=== PATIENT | male | born 1980 | race Caucasian/White ===

== ENCOUNTER 2019-09-21 12:46 | Inpatient (IN) | payer OTHER ==
--- NOTE | 2019-09-21 12:57 | PDOC ---
Rapid Medical Evaluation Time Seen by Provider: 09/21/19 12:51 Medical Evaluation: Allergies Allergy/AdvReac Type Severity Reaction Status Date / Time No Known Allergies Allergy Verified 02/23/15 20:36 09/21/19 12:52 I have performed a brief in-person evaluation of this patient. The patient presents with a chief complaint of:sent from Dr George for admission / infection right hip/ hepC/ opiod addict.- states has " fungal infection in blood culture" at Dr George last week. Pertinent physical exam findings: pale/ I have ordered the following: labs - mult instructions and orders to note from Dr George The patient will proceed to the ED for further evaluation.
[2019-09-21 13:04] VITALS: BMI 23.3
[2019-09-21] MEDS ORDERED: SODIUM CHLORIDE 1,000 ML IV STA (13:13)
--- NOTE | 2019-09-21 13:37 | PDOC ---
History of Present Illness - General Chief Complaint: Pain Stated Complaint: SENT FROM PCP Time Seen by Provider: 09/21/19 12:51 History Source: Patient - History of Present Illness Timing/Duration: other Past History - Past Medical History Allergies/Adverse Reactions: Allergies Allergy/AdvReac Type Severity Reaction Status Date / Time No Known Allergies Allergy Verified 09/21/19 13:04 Home Medications: Ambulatory Orders Albuterol Sulfate Inhaler - [Ventolin HFA Inhaler -] 2 inh IH Q6H #1 inh Ibuprofen [Motrin] 800 mg PO TID #20 tablet 02/24/15 predniSONE [Deltasone -] 40 mg PO DAILY #14 tablet 02/24/15 Asthma: Yes - Immunization History Immunization Up to Date: Yes - Psycho Social/Smoking Cessation Hx Smoking History: Current every day smoker Have you smoked in the past 12 months: Yes Number of Cigarettes Smoked Daily: 20 Information on smoking cessation initiated: No 'Breaking Loose' booklet given: 02/23/15 Hx Alcohol Use: No Drug/Substance Use Hx: No Substance Use Type: None Review of Systems - Review of Systems Constitutional: No: Chills, Fever Respiratory: No: Cough, Shortness of Breath, Hemoptysis Cardiac (ROS): No: Chest Pain, Lightheadedness, Palpitations Musculoskeletal: Yes: Joint Pain. No: Joint Swelling *Physical Exam - Vital Signs Last Vital Signs Temp Pulse Resp BP Pulse Ox 98 F 75 18 98/44 L 99 09/21/19 12:56 09/21/19 12:56 09/21/19 12:56 09/21/19 12:56 09/21/19 12:56 - Physical Exam Comments: 09/21/19 13:37 josé miguel chronically ill General Appearance: Yes: Appropriately Dressed HEENT: positive: Normal Voice Neck: positive: Supple Respiratory/Chest: positive: Lungs Clear, Normal Breath Sounds. negative: Respiratory Distress Cardiovascular: positive: Regular Rate, S1, S2. negative: Murmur Gastrointestinal/Abdominal: positive: Soft. negative: Tender Extremity: positive: Normal Inspection, Normal Range of Motion. negative: Tender, Swelling Integumentary: positive: Dry, Warm Neurologic: positive: Fully Oriented, Alert, Normal Mood/Affect ED Treatment Course - RADIOLOGY Radiology Studies Ordered: Category Date Time Status LOWER EXTREMITY MRI W&WO-LEFT [MRI] Stat MRI 09/21/19 13:16 Ordered CHEST X-RAY PORTABLE* [RAD] Stat Radiology 09/21/19 13:17 Ordered Medical Decision Making - Medical Decision Making 09/21/19 13:24 39 yo M, h/o asthma, sciatica, IVDA, last used lst night,non-complaint w/ suboxone ("gives me withdrawal"), recently dx w/ HCV, sent in by PMD to r/o R hip osteomyelitis. Patient states he has chronic right hip pain that has been getting worse. Does report sciatica on the R but states this is different from his sciatica. No neuro symptoms. No trauma. States he saw Dr. George last week for same and was also c/o some swelling of both of his lower extremities and had blood work done. States he received a call from MD today that blood culture is growing out yeast and sent to ED. Patient denies any cough, shortness of breath, chest pain, palpitations, body aches, joint pain, abd pain , night sweats, fever or chills. States he currently feels like he is in withdrawal. Labs drawn 09/17 remarkable for ESR of 19, CRP 27, mildly elevated LFTs. WBC 11. Per notes from Dr. George, wants 2 set of blood cultures, MRI right hip with and without contrast and echo. Also wants ID consult. see exam R/o OM R hip Yeast on recent bld cx w/ elevated inflammatory markers Current IVDA No fever, CP, SOB and no murmur on exam to suspect endocarditis at this time José Miguel chronically ill and pain w/ BP 98/44 -labs -ekg -MRI hip -Echo per referring PMD -ID c/s -admit 09/21/19 13:58 Admitting team at bedside, states ID already aware of pt. Wants dose of IV Vanco here. Team to discuss possible IV antifungal with ID. Patient currently admitted to Dr. George Discharge - Discharge Information Problems reviewed: Yes Clinical Impression/Diagnosis: Blood culture positive for Aziza species Hip pain Qualifiers: Laterality: right Qualified Code(s): M25.551 - Pain in right hip Condition: Fair - Admission Yes - Follow up/Referral - Patient Discharge Instructions - Post Discharge Activity
[2019-09-21] MEDS ORDERED: ACETAMINOPHEN 1000 MG/100 ML VIAL (NON FORMULARY) IVPB ONE (13:56)
[2019-09-21] MEDS ORDERED: VANCOMYCIN 1,000 MG in DEXTROSE 5%-WATER - 250 ML IVPB ONE (13:57)
--- NOTE | 2019-09-21 14:14 | CON.CARD ---
Consult Consult Specialty:: Cardiology Referred by:: Dr. Canales Reason for Consultation:: Possible endocarditis - History of Present Illness Chief Complaint: Hip pain , + blood cultures History of Present Illness: 39M, active IVDA (heroin) w/ several weeks right hip pain presents to ER with + blood cultures (yeast species), right hip pain for further evaluation. Patient states his hip has been hurting for about 2 weeks. Had blood cultures Friday in Dr. George office and was called to come to ER today for + results. He has some nigh sweats. He injects daily with his own needles. PMH: Mild asthma Denies CP, Neuro sx, palps, SOB. 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: Alzheimer's, CVA, Dementia, Migraine, Multiple Sclerosis, Peripheral Neuropathy, Parkinson's, Seizure, Syncope, TIA, Vertigo, Other Cardio/Vascular: No: AFIB, Aneurysm, Aortic Insufficiency, Aortic Stenosis, CAD , CHF, Deep Vein Thrombosis, HTN, Hyperlipdemia, [place], Mitral Insufficiency, Mitral Stenosis, Murmur, Pulmonary Hypertension, Other Pulmonary: Yes: Asthma Gastrointestinal: No: Ascites, Cancer, Constipation, Crohn's Disease, Diverticulitis, Diverticulosis, Esophageal Varices, Gastritis, GERD, GI Bleed, Hemorrhoids, Hiatal Hernia, Inflamatory Bowel Disease, Irritable Bowel Disease, Pancreatitis, Peptic Ulcer Disease, Ulcerative Colitis, Other Hepatobiliary: No: Cirrhosis, Cholelithiasis, Cholecystitis, Choledocholithiasis , Hepatitis A, Hepatitis B, Hepatitis C, Other Renal/: No: Renal Failure, Renal Inusuff, BPH, Cancer, Hematuria, Hemodialysis , Neurogenic Bladder, Renal Calculi, UTI, Other Heme/Onc: No: Anemia, B12 Deficiency, Bleeding Disorder, Cancer, Current Chemotherapy, Current Radiation Therapy, Hemochromatosis, Hypercoaguable State, Myeloproliferative Synd, Sickle Cell Disease, Sickle Cell Trait, Thrombocytopenia, Other Infectious Disease: No: AIDS, C-Diff, Herpes Zoster, HIV, MRSA, STD's, Tuberculosis, VREF, Other Psych: No: Addictions, Anxiety, Bipolar, Depression, Panic, Psychosis, Schizophrenia, Other Musculoskeletal: No: Bursitis, Chronic low back pain, Hemiparesis, Hemiplegia, Osteoarthritis, Paraplegia, Other Rheumatology: No: Fibromyalgia, Gout, Lupus, Rheumatoid Arthritis, Sarcoidosis, Vasculitis, Other ENT: No: Allergic Rhinitis, Sinusitis, Other Endocrine: No: Beadle's Disease, Ruby's Disease, Diabetes Insipidus, Diabetes Mellitus, Hyperparathyroidism, Hyperthyroidism, Hypothyroidism, Osteopenia, SIADH, Other Dermatology: No: Basal Cell, Cellulitis, Eczema, Melanoma, Psoriasis, Squamous Cell, Other - Past Surgical History Past Surgical History: No: None, AAA Repair, AICD, Amputation, Appendectomy, Arthrosocopy, AV Fistula/Graft, Bariatric Surgery, Breast Biopsy, Bypass, CABG, Carotid Endarterectomy, Cataract Removal, Cholecystectomy, Colectomy, Colonoscopy, Colostomy, Craniotomy, , Cystectomy, Hernia Repair, Hysterectomy, Ileal Conduit, Ileosotomy, Joint Replacement, Kidney Transplant, Laminectomy, Liver Transplant, Mastectomy, Nephrectomy, Oopherectomy, Orchiectomy, Permanent Pacemaker, Prostatectomy, Splenectomy, Stent, Thoracotomy , TURP, Tonsillectomy, Tubal Ligation, Upper Endoscopy, Valve Replacement, Vasectomy, Vein Stripping/Ligation - Alcohol/Substance Use Hx Alcohol Use: No History of Substance Use: reports: Heroin - Smoking History Smoking history: Current every day smoker Have you smoked in the past 12 months: Yes Aproximately how many cigarettes per day: 20 - Social History Occupation: unemployed History of Recent Travel: No Home Medications - Allergies Allergies/Adverse Reactions: Allergies Allergy/AdvReac Type Severity Reaction Status Date / Time No Known Allergies Allergy Verified 09/21/19 13:04 - Home Medications Home Medications: Ambulatory Orders Albuterol Sulfate Inhaler - [Ventolin HFA Inhaler -] 2 inh IH Q6H #1 inh Ibuprofen [Motrin] 800 mg PO TID #20 tablet 02/24/15 predniSONE [Deltasone -] 40 mg PO DAILY #14 tablet 02/24/15 Family Medical History Family History: Unremarkable Review of Systems Findings/Remarks: see HPI - Review of Systems Constitutional: reports: Chills, Night Sweats Eyes: denies: No Symptoms, Blind Spots, Blurred Vision, Double Vision, Eye Pain , Floaters, Photophobia, Recent Change in Vision, Other HENT: denies: No Symptoms, Difficult Swallowing, Ear Discharge, Ear Pain, Epistaxis, Gingival Bleeding, Hearing Loss, Mouth Swelling, Nasal Congestion, Ocular Prosthesis, Throat Pain, Toothache, Ringing in Ears, Other Neck: denies: No Symptoms, Decreased ROM, Lumps, Pain on Movement, Stiffness, Swollen Glands, Tenderness, Other Cardiovascular: denies: No Symptoms, Chest Pain, Edema, Palpitations, Shortness of Breath, Other Respiratory: denies: No Symptoms, Cough, Exercise Intolerance, Hemoptysis, Orthopnea, PND, Snoring, SOB, SOB on Exertion, Wheezing, Other Gastrointestinal: denies: No Symptoms, Abdominal Pain, Bloating, Constipation, Diarrhea, Dysphagia, Indigestion, Melena, Nausea, Rectal Bleeding, Vomiting, Vomiting Blood, Other Genitourinary: denies: No Symptoms, Burning, Discharge, Dysuria, Flank Pain, Frequency, Hematuria, Incontinence, Lesions, Menses, Pain, Testicular Mass, Testicular Pain, Testicular Swelling, Urgency, Vaginal Bleeding, Other Breasts: denies: No Symptoms Reported, See HPI, Breast Implants, Discharge from Nipple, Lumps, Pain, Skin Changes, Other Musculoskeletal: reports: Joint Pain Integumentary: denies: No Symptoms, Blister, Bruising, Change in Color, Eczema, Erythema, Incision, Lesions, Lump, Pallor, Pruritis, Rash, Wound, Other Neurological: denies: No Symptoms, Change in LOC, Change in Speech, Confusion, Dizziness, Headache, Incoordination, Numbness, Parasthesia, Pre-Existing Deficit , Seizure, Syncope, Tremors, Unsteady Gait, Weakness, Other Endocrine: denies: No Symptoms, Excessive Sweating, Flushing, Increased Hunger, Increased Thirst, Intolerance to Cold, Intolerance to Heat, Unexplained Weight Gain, Unexplained Weight Loss, Other Hematology/Lymphatic: denies: No Symptoms, Easily Bruised, Excessive Bleeding, Swollen Glands, Other Psychiatric: denies: No Symptoms, Altered Sleep Pattern, Anxiety, Depression, Hallucinations, Panic, Paranoia, Suicidal, Other - Risk Factors Known Risk Factors: Yes: Smoking Vital Signs: Vital Signs Temperature 98 F 09/21/19 12:56 Pulse Rate 75 09/21/19 12:56 Respiratory Rate 18 09/21/19 12:56 Blood Pressure 98/44 L 09/21/19 12:56 O2 Sat by Pulse Oximetry (%) 99 09/21/19 12:56 Constitutional: Yes: No Distress, Calm Eyes: Yes: Conjunctiva Clear, EOM Intact HENT: Yes: Atraumatic, Normocephalic Neck: Yes: Trachea Midline Respiratory: Yes: CTA Bilaterally Gastrointestinal: Yes: Soft (NT) Cardiovascular: Yes: Regular Rate and Rhythm JVD: No Carotid Bruit: No PMI: Non-Displaced Heart Sounds: Yes: S1, S2 (rrr, NO MURMURS) Musculoskeletal: Yes: Other (right hip pain) Extremities: Yes: Other (track [place] on arms/hands) Edema: No Neurological: Yes: Alert, Oriented ...Motor Strength: WNL - Other Data Labs, Other Data: pending NSR at 65 bpm, normal VA interval Echo: Pending Imaging - Results EKG: Image Reviewed Assessment/Plan IMP: Active IVDA (heroin) Positive blood cultures (by report yeast) Right hip pain, r/o osteo Rule out endocarditis. REC: 1. Serial blood cultures; imaging of right hip as per PMD 2. Echo 3. ID consult and abx as per ID 4. Telemetry, daily ECGs 5. Watch / treat for opiate withdrawal as per PMD 6. Low threshold to transfer to tertiary care center if clinical picture becomes more clearly c/w endocarditis.
[2019-09-21 15:09] LABS: BASO % 0.5 % (0-2.0); EOS % 2.2 % (0-4.5); HEMATOCRIT 38.5 % (35.4-49); HEMOGLOBIN 12.9 GM/dL (11.7-16.9); MCH 31.3 pg (25.7-33.7); MCHC 33.5 g/dl (32.0-35.9); MEAN CELL VOLUME 93.3 fl (80-96); MEAN PLT VOLUME 7.9 fl (7.5-11.1); NEUT % 62.3 % (42.8-82.8); PLATELET COUNT 372 K/MM3 (134-434); RBC 4.12 M/mm3 (4.00-5.60); RDW 15.1 % (11.9-15.9); WHITE BLOOD COUNT 8.4 K/mm3 (4.0-10.0)
[2019-09-21 15:15] LABS: EPI CELLS 9.7 /HPF (0-5/HPF); HYALINE CASTS 108 /lpf (0-8); URINE APPEARANCE CLOUDY; URINE BACTERIA 1.2 /hpf (NEGATIVE); URINE BILIRUBIN 2+ (NEGATIVE); URINE COLOR DK YELLOW; URINE GLUCOSE (UA) NEGATIVE (NEGATIVE); URINE KETONE TRACE (NEGATIVE); URINE LEUK ESTERASE TRACE (NEGATIVE); URINE NITRITE POSITIVE (NEGATIVE); URINE PROTEIN 2+ (NEGATIVE); URINE RBC 4 /hpf (0-4); URINE WBC 12 /hpf (0-5)
--- NOTE | 2019-09-21 15:40 | HP ---
Admitting History and Physical - Primary Care Physician PCP: Jem Alegria - Admission Chief Complaint: positive blood culture History of Present Illness: 39 yrs old male sent from Dr Alegria office for positive blood cultures -- to r/ o endocarditis He is IVDA - Heroin for 2 years now-- was on suboxone - but could not tolerate it as it was giving him withdrawals. chronic Hep C, asthma, cigarette smoker- 1 ppd He had not seen Dr Alegria in last 2 months and had gone to his office about 4 days ago , feeling weak , difficulty walking due to pain in right hip for last 1 month - using a cane now.denies fever and chills.Has leg swelling, SOB . Denies chest pain and palpitations. PMD dennis labs and cultures - today called pt in as one set came back positive for yeast and was advised to go to ER. 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, CVA, Dementia, Migraine, Multiple Sclerosis, Peripheral Neuropathy, Parkinson's, Seizure, Syncope, TIA, Vertigo, Other Cardiovascular: No: AFIB, Aneurysm, Aortic Insufficiency, Aortic Stenosis, CAD, CHF, Deep Vein Thrombosis, HTN, Hyperlipdemia, [place], Mitral Insufficiency, Mitral Stenosis, Murmur, Pulmonary Hypertension, Other Pulmonary: Yes: Asthma Gastrointestinal: No: Ascites, Cancer, Constipation, Crohn's Disease, Diverticulitis, Diverticulosis, Esophageal Varices, Gastritis, GERD, GI Bleed, Hemorrhoids, Hiatal Hernia, Inflamatory Bowel Disease, Irritable Bowel Disease, Pancreatitis, Peptic Ulcer Disease, Ulcerative Colitis, Other Hepatobiliary: Yes: Hepatitis C. No: Cirrhosis, Cholelithiasis, Cholecystitis, Choledocholithiasis, Hepatitis A, Hepatitis B, Other Renal/: No: Renal Failure, Renal Inusuff, BPH, Cancer, Hematuria, Hemodialysis , Neurogenic Bladder, Renal Calculi, UTI, Other Heme/Onc: No: Anemia, B12 Deficiency, Bleeding Disorder, Cancer, Current Chemotherapy, Current Radiation Therapy, Hemochromatosis, Hypercoaguable State, Myeloproliferative Synd, Sickle Cell Disease, Sickle Cell Trait, Thrombocytopenia, Other Infectious Disease: No: AIDS, C-Diff, Herpes Zoster, HIV, MRSA, STD's, Tuberculosis, VREF, Other Psych: No: Addictions, Anxiety, Bipolar, Depression, Panic, Psychosis, Schizophrenia, Other Musculoskeletal: No: Bursitis, Chronic low back pain, Hemiparesis, Hemiplegia, Osteoarthritis, Paraplegia, Other Rheumatology: No: Fibromyalgia, Gout, Lupus, Rheumatoid Arthritis, Sarcoidosis, Vasculitis, Other ENT: No: Allergic Rhinitis, Sinusitis, Other Endocrine: No: Maljamar's Disease, [place]'s Disease, Diabetes Insipidus, Diabetes Mellitus, Hyperparathyroidism, Hyperthyroidism, Hypothyroidism, Osteopenia, SIADH, Other Dermatology: No: Basal Cell, Cellulitis, Eczema, Melanoma, Psoriasis, Squamous Cell, Other Additional Past Medical History: chronic smoker, occasional alcohol, current IVDA - heroin - Past Surgical History Past Surgical History: No: None, AAA Repair, AICD, Amputation, Appendectomy, Arthrosocopy, AV Fistula/Graft, Bariatric Surgery, Breast Biopsy, Bypass, CABG, Carotid Endarterectomy, Cataract Removal, Cholecystectomy, Colectomy, Colonoscopy, Colostomy, Craniotomy, , Cystectomy, Hernia Repair, Hysterectomy, Ileal Conduit, Ileosotomy, Joint Replacement, Kidney Transplant, Laminectomy, Liver Transplant, Mastectomy, Nephrectomy, Oopherectomy, Orchiectomy, Permanent Pacemaker, Prostatectomy, Splenectomy, Stent, Thoracotomy , TURP, Tonsillectomy, Tubal Ligation, Upper Endoscopy, Valve Replacement, Vasectomy, Vein Stripping/Ligation - Smoking History Smoking history: Current every day smoker Have you smoked in the past 12 months: Yes Aproximately how many cigarettes per day: 20 - Alcohol/Substance Use Hx Alcohol Use: No History of Substance Use: reports: Heroin - Social History Occupation: unemployed History of Recent Travel: No Home Medications - Allergies Allergies/Adverse Reactions: Allergies Allergy/AdvReac Type Severity Reaction Status Date / Time No Known Allergies Allergy Verified 09/21/19 13:04 - Home Medications Home Medications: Ambulatory Orders Albuterol Sulfate Inhaler - [Ventolin HFA Inhaler -] 2 inh IH Q6H #1 inh Ibuprofen [Motrin] 800 mg PO TID #20 tablet 02/24/15 predniSONE [Deltasone -] 40 mg PO DAILY #14 tablet 02/24/15 Physical Examination Vital Signs: Vital Signs Temperature 98 F 09/21/19 12:56 Pulse Rate 75 09/21/19 12:56 Respiratory Rate 18 09/21/19 12:56 Blood Pressure 98/44 L 09/21/19 12:56 O2 Sat by Pulse Oximetry (%) 99 09/21/19 12:56 Constitutional: Yes: Mild Distress, Thin Cardiovascular: Yes: Regular Rate and Rhythm. No: Murmur Respiratory: Yes: Diminished Gastrointestinal: Yes: Normal Bowel Sounds, Soft. No: Tenderness Extremities: Yes: Other (range of motion to right hip limited due to pain) Edema: Yes Edema: LLE: 2+, RLE: 2+ Integumentary: Yes: Other (injection site on dorsum of hands, cubital region B/L ) Neurological: Yes: Alert, Oriented Psychiatric: Yes: Alert, Oriented Labs: CBC, BMP 09/21/19 14:35 Imaging - Results Chest X-ray: Image Reviewed (no infiltrate) EKG: Image Reviewed (NSR) Problem List - Problems (1) IVDU (intravenous drug user) Code(s): F19.90 - OTHER PSYCHOACTIVE SUBSTANCE USE, UNSPECIFIED, UNCOMPLICATED (2) Asthma Code(s): J45.909 - UNSPECIFIED ASTHMA, UNCOMPLICATED (3) Blood culture positive for Aziza species Code(s): B37.9 - CANDIDIASIS, UNSPECIFIED (4) COPD (chronic obstructive pulmonary disease) Code(s): J44.9 - CHRONIC OBSTRUCTIVE PULMONARY DISEASE, UNSPECIFIED (5) Hip pain Code(s): M25.559 - PAIN IN UNSPECIFIED HIP Qualifiers: Laterality: right Qualified Code(s): M25.551 - Pain in right hip Assessment/Plan PLAN IV drug abuse R/O endocarditis R/O osteomyelitis of right hip COPD Asthma -- Spoke with ID and Cardiology -- Blood cultures drawn here -- ESR and CRP in office was elevated ESR of 19, CRP 27 -- will need IV Cancidas -after cultures drawn -- ortho eval -- spoke with DR Espinoza - Detox- will start Methadone protocol for heroin detox -- Echo pending --ordered MRI right hip -- prognosis is guarded at this time -- will need telemetry monitoring -- check Cardiac enzymes
[2019-09-21 15:41] LABS: ALBUMIN 3.2 g/dl (3.4-5.0); BILIRUBIN,TOTAL 0.6 mg/dL (0.2-1); BLOOD UREA NITROGEN 9.5 mg/dL (7-18); CALCIUM 8.6 mg/dL (8.5-10.1); CREATININE 0.7 mg/dL (0.55-1.3); POTASSIUM 3.8 mmol/L (3.5-5.1)
--- NOTE | 2019-09-21 15:57 | ECHO ---
Name: CHRISTINA KIDD Exam:Adult Echocardiogram Study Date: 09/21/2019 03:06 PM Age: 39 yrs Reason For Study: R/O Endocarditis Height: 69 in Weight: 158 lb BSA: 1.9 m2 MMode/2D Measurements & Calculations IVSd: 0.90 cm Ao root diam: 3.3 cm LVIDd: 3.4 cm LA dimension: 2.1 cm LVIDs: 2.5 cm ACS: 2.0 cm LVPWd: 1.5 cm EDV(Teich): 45.8 ml LVOT diam: 2.1 cm ESV(Teich): 22.5 ml RV S Wilder: 12.7 cm/sec Doppler Measurements & Calculations MV E max wilder: 128.3 cm/sec Ao V2 max: 133.0 cm/sec MV A max wilder: 67.9 cm/sec Ao max P.1 mmHg MV E/A: 1.9 MV dec time: 0.14 sec NED(V,D): 2.6 cm2 LV V1 max P.2 mmHg MR max wilder: 133.0 cm/sec LV V1 mean P.2 mmHg MR max P.1 mmHg LV V1 max: 102.4 cm/sec LV V1 mean: 68.7 cm/sec LV V1 VTI: 24.2 cm SV(LVOT): 80.7 ml TR max wilder: 268.8 cm/sec TR max P.9 mmHg Med Peak E' Wilder: 8.3 cm/sec Med E/e': 15.5 Lat Peak E' Wilder: 8.2 cm/sec Lat E/e': 15.7 Left Ventricle The left ventricular size, thickness and function are normal. Ejection Fraction = 65%.. The transmitr al spectral Doppler flow pattern is normal for age. Right Ventricle Borderline right ventricular enlargement. The right ventricular systolic function is normal. Atria Normal left and right atrial size and function. Mitral Valve The mitral valve is normal in structure and function. There is trace mitral regurgitation. Tricuspid Valve The tricuspid valve is normal in structure and function. No tricuspid regurgitation. There was insuff icient TR detected to calculate RV systolic pressure. Aortic Valve There is mild aortic valve thickening. There is no aortic valvular vegetation. No hemodynamically sig nificant valvular aortic stenosis. No aortic regurgitation is present. Pulmonic Valve The pulmonic valve is not well seen, but is grossly normal. Great Vessels The aortic root is normal size. Pericardium/Pleura There is no pericardial effusion. Interpretation Summary The left ventricular size, thickness and function are normal. Ejection Fraction = 65%. Borderline right ventricular enlargement. The right ventricular systolic function is normal. Normal left and right atrial size and function. There is mild aortic valve thickening. There is no aortic valvular vegetation. The mitral valve is normal in structure and function. There is trace mitral regurgitation. The tricuspid valve is normal in structure and function. No intracardiac vegetation or mass seen. MD Yuko Salazar 09/21/2019 03:56 PM
[2019-09-21] MEDS ORDERED: CASPOFUNGIN ACETATE 70 MG in SODIUM CHLORIDE 250 ML IVPB ONE (16:44)
--- NOTE | 2019-09-21 16:53 | CON.ID ---
Consult Consult Specialty:: infectious disease Referred by:: dr schneider Reason for Consultation:: positive blood culture for yeast as outpt - History of Present Illness Chief Complaint: right hip pain History of Present Illness: 39 yo man active heroine user- does not share needles- saw dr Pichardo on 09/17 for right leg pain - labs and cultures drawn today one bottle with yeast he was referred to ED also HIV negative, hep c positive on 09/17 denies fevers recent dental extraction last week took some amox lives with mother unemployed denies visual complaints - History Source History Provided By: Patient - Past Medical History 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: No: Alzheimer's, CVA, Dementia, Migraine, Multiple Sclerosis, Peripheral Neuropathy, Parkinson's, Seizure, Syncope, TIA, Vertigo, Other Cardio/Vascular: No: AFIB, Aneurysm, Aortic Insufficiency, Aortic Stenosis, CAD , CHF, Deep Vein Thrombosis, HTN, Hyperlipdemia, MS, Mitral Insufficiency, Mitral Stenosis, Murmur, Pulmonary Hypertension, Other Pulmonary: Yes: Asthma Gastrointestinal: No: Ascites, Cancer, Constipation, Crohn's Disease, Diverticulitis, Diverticulosis, Esophageal Varices, Gastritis, GERD, GI Bleed, Hemorrhoids, Hiatal Hernia, Inflamatory Bowel Disease, Irritable Bowel Disease, Pancreatitis, Peptic Ulcer Disease, Ulcerative Colitis, Other Hepatobiliary: Yes: Hepatitis C. No: Cirrhosis, Cholelithiasis, Cholecystitis, Choledocholithiasis, Hepatitis A, Hepatitis B, Other Renal/: No: Renal Failure, Renal Inusuff, BPH, Cancer, Hematuria, Hemodialysis , Neurogenic Bladder, Renal Calculi, UTI, Other Infectious Disease: No: AIDS, C-Diff, Herpes Zoster, HIV, MRSA, STD's, Tuberculosis, VREF, Other Psych: No: Addictions, Anxiety, Bipolar, Depression, Panic, Psychosis, Schizophrenia, Other Musculoskeletal: No: Bursitis, Chronic low back pain, Hemiparesis, Hemiplegia, Osteoarthritis, Paraplegia, Other Rheumatology: No: Fibromyalgia, Gout, Lupus, Rheumatoid Arthritis, Sarcoidosis, Vasculitis, Other ENT: No: Allergic Rhinitis, Sinusitis, Other Endocrine: No: Walter's Disease, [place]'s Disease, Diabetes Insipidus, Diabetes Mellitus, Hyperparathyroidism, Hyperthyroidism, Hypothyroidism, Osteopenia, SIADH, Other Dermatology: No: Basal Cell, Cellulitis, Eczema, Melanoma, Psoriasis, Squamous Cell, Other - Past Surgical History Past Surgical History: No: None, AAA Repair, AICD, Amputation, Appendectomy, Arthrosocopy, AV Fistula/Graft, Bariatric Surgery, Breast Biopsy, Bypass, CABG, Carotid Endarterectomy, Cataract Removal, Cholecystectomy, Colectomy, Colonoscopy, Colostomy, Craniotomy, , Cystectomy, Hernia Repair, Hysterectomy, Ileal Conduit, Ileosotomy, Joint Replacement, Kidney Transplant, Laminectomy, Liver Transplant, Mastectomy, Nephrectomy, Oopherectomy, Orchiectomy, Permanent Pacemaker, Prostatectomy, Splenectomy, Stent, Thoracotomy , TURP, Tonsillectomy, Tubal Ligation, Upper Endoscopy, Valve Replacement, Vasectomy, Vein Stripping/Ligation - Alcohol/Substance Use Hx Alcohol Use: No History of Substance Use: reports: Heroin - Smoking History Smoking history: Current every day smoker Have you smoked in the past 12 months: Yes Aproximately how many cigarettes per day: 20 - Social History Usual Living Arrangement: With Parent ADL: Independent Occupation: unemployed Place of : [facility] History of Recent Travel: No Home Medications - Allergies Allergies/Adverse Reactions: Allergies Allergy/AdvReac Type Severity Reaction Status Date / Time No Known Allergies Allergy Verified 09/21/19 13:04 - Home Medications Home Medications: Ambulatory Orders Albuterol Sulfate Inhaler - [Ventolin HFA Inhaler -] 2 inh IH Q6H #1 inh Ibuprofen [Motrin] 800 mg PO TID #20 tablet 02/24/15 predniSONE [Deltasone -] 40 mg PO DAILY #14 tablet 02/24/15 Review of Systems - Review of Systems Constitutional: reports: No Symptoms Eyes: reports: No Symptoms HENT: reports: No Symptoms Neck: reports: No Symptoms. denies: Decreased ROM Cardiovascular: reports: No Symptoms Respiratory: reports: No Symptoms, Cough (chronic) Gastrointestinal: reports: No Symptoms Genitourinary: reports: No Symptoms Musculoskeletal: reports: Joint Pain (right hip pain for several weeks- denies trauma) Physical Exam Vital Signs: Vital Signs Temperature 98 F 09/21/19 12:56 Pulse Rate 75 09/21/19 12:56 Respiratory Rate 18 09/21/19 12:56 Blood Pressure 98/44 L 09/21/19 12:56 O2 Sat by Pulse Oximetry (%) 99 09/21/19 12:56 Constitutional: Yes: Anxious Eyes: Yes: Conjunctiva Clear HENT: Yes: Atraumatic, Normocephalic. No: Pharyngeal Erythema, Thrush Neck: Yes: Supple Cardiovascular: Yes: Regular Rate and Rhythm. No: Murmur Respiratory: Yes: Regular, CTA Bilaterally Gastrointestinal: Yes: Normal Bowel Sounds, Soft Extremities: Yes: Erythema (RLE with edema), Other (track kingston forearms, no stigmate SBE) Neurological: Yes: Alert, Oriented Psychiatric: Yes: Alert, Oriented Labs: CBC, BMP 09/21/19 14:35 09/21/19 14:35 blood cultures pending Imaging - Results Chest X-ray: Pending X-ray: Pending Problem List - Problems (1) Blood culture positive for Aziza species Code(s): B37.9 - CANDIDIASIS, UNSPECIFIED (2) Hip pain Code(s): M25.559 - PAIN IN UNSPECIFIED HIP Qualifiers: Laterality: right Qualified Code(s): M25.551 - Pain in right hip (3) Cellulitis of right leg Code(s): L03.115 - CELLULITIS OF RIGHT LOWER LIMB (4) Hep C w/o coma, chronic Code(s): B18.2 - CHRONIC VIRAL HEPATITIS C (5) IVDU (intravenous drug user) Code(s): F19.90 - OTHER PSYCHOACTIVE SUBSTANCE USE, UNSPECIFIED, UNCOMPLICATED Assessment/Plan blood cultures drawn in ED echo done- transthoracic unremarkable start cancidas for fungemia continue vancomycin for cellulitis duplex RLE MRI of right hip detox consult cardiology following overall prognosis is guarded d/w PMD
[2019-09-21] MEDS ORDERED: ACETAMINOPHEN INJECTION 100 ML IVPB ONE (16:54)
[2019-09-21] MEDS ORDERED: VANCOMYCIN 1 GRAM (PRE-DOCKED) 1,000 MG/250 ML BAG IVPB ONE (16:55)
[2019-09-21] MEDS ORDERED: METHADONE HCL 10 MG TABLET ONE (16:58)
[2019-09-21] MEDS ORDERED: METHADONE HCL 10 MG TABLET (FOR DETOX USE ONLY) PO ONE (17:00)
[2019-09-21] MEDS: D5-NS + 20 MEQ KCL - 20 MEQ/1,000 ML INFUS.BAG IV SCH (20:22)
[2019-09-21] MEDS ORDERED: HEPARIN NA (PORCINE) 5,000 UNITS/ML 1ML VIAL ONE (23:56)
[2019-09-22] MEDS: HEPARIN NA (PORCINE) 5,000 UNITS/ML 1ML VIAL SQ SCH ×3 (00:02→21:33)
[2019-09-22] MEDS ORDERED: ACETAMINOPHEN 325 MG TABLET (FP) PO ONE (04:15)
[2019-09-22] MEDS ORDERED: IBUPROFEN 400 MG TABLET (FP) PO ONE (04:16)
[2019-09-22] MEDS ORDERED: VANCOMYCIN 1 GRAM (PRE-DOCKED) 1,000 MG/250 ML BAG IVPB ONE (06:04)
[2019-09-22] MEDS: VANCOMYCIN 1 GRAM (PRE-DOCKED) 1,000 MG/250 ML BAG IVPB SCH ×2 (06:10→18:34)
[2019-09-22] MEDS ORDERED: METHADONE HCL 5 MG TABLET ONE (08:44)
[2019-09-22] MEDS ORDERED: PT OWN MED DRAWER 7, Y5N ONE ×2 (08:45→14:55)
[2019-09-22] MEDS: PANTOPRAZOLE 40 MG TABLET (FP) PO SCH (09:40)
[2019-09-22] MEDS ORDERED: METHADONE (DETOX) 20 MG, METHADONE (DETOX) 5 MG PO ONE (10:00)
--- NOTE | 2019-09-22 10:38 | PN ---
Progress Note (short form) - Note Progress Note: Sleepy from Methadone Does not want to eat Vital Signs - 24 hr 09/21/19 09/21/19 09/22/19 12:56 20:15 06:33 Temperature 98 F 97.2 F L Pulse Rate 75 Pulse Rate [ 74 Right Radial] Respiratory 18 18 Rate Blood Pressure 98/44 L Blood Pressure 98/50 L [Left Arm] O2 Sat by Pulse 99 99 Oximetry (%) 09/22/19 06:45 Temperature 97.2 F L Pulse Rate Pulse Rate [ 74 Right Radial] Respiratory 18 Rate Blood Pressure Blood Pressure 98/50 L [Left Arm] O2 Sat by Pulse 98 Oximetry (%) Current Medications Generic Name Dose Route Start Last Admin Trade Name Freq PRN Reason Stop Dose Admin Clonidine 0.1 mg 09/21/19 15:55 Catapres - PO 09/23/19 23:59 Q4H PRN Withdrawal Symptoms Heparin Sodium (Porcine) 5,000 unit 09/21/19 22:00 09/22/19 09:40 Heparin - SQ 5,000 unit BID HAJA Administration Dextrose/Sodium Chloride 20 meq in 1,000 mls @ 100 mls/hr 09/21/19 16:15 20:22 Dextrose 5%-Normal Saline+20 Meq Kcl - IV 100 mls/hr ASDIR HAJA Administration Caspofungin 50 mg/ Sodium 250 mls @ 250 mls/hr 09/22/19 16:45 Chloride IVPB Q24H HAJA Vancomycin HCl 1,000 mg in 250 mls @ 166.667 mls/hr 09/22/19 06:00 09/22/19 06:10 Vancomycin (Pre-Docked) IVPB 166.667 mls/hr Q12H HAJA Administration Protocol Methadone HCl 10 mg/ Methadone 15 mg 09/24/19 10:00 HCl 5 mg PO 09/24/19 10:01 ONCE ONE Methadone HCl 5 mg 09/26/19 06:00 Dolophine - PO 09/26/19 06:01 ONCE@0600 ONE Methadone HCl 10 mg 09/25/19 10:00 Dolophine - PO 09/25/19 10:01 ONCE ONE Methadone HCl 20 mg 09/23/19 10:00 Dolophine - PO 09/23/19 10:01 ONCE ONE Pantoprazole Sodium 40 mg 09/22/19 10:00 09/22/19 09:40 Protonix - PO 40 mg DAILY HAJA Administration Laboratory Results - last 24 hr 09/21/19 09/21/19 09/21/19 14:35 14:35 14:35 WBC 8.4 RBC 4.12 Hgb 12.9 Hct 38.5 D MCV 93.3 MCH 31.3 D MCHC 33.5 RDW 15.1 D Plt Count 372 D MPV 7.9 Absolute Neuts (auto) 5.2 Neutrophils % 62.3 Lymphocytes % 27.0 Monocytes % 8.0 Eosinophils % 2.2 D Basophils % 0.5 Nucleated RBC % 0 ESR Sodium 139 Potassium 3.8 Chloride 105 Carbon Dioxide 31 Anion Gap 3 L BUN 9.5 Creatinine 0.7 Est GFR (CKD-EPI)AfAm 138.75 Est GFR (CKD-EPI)NonAf 119.71 Random Glucose 97 Lactic Acid Calcium 8.6 Total Bilirubin 0.6 AST 73 H ALT 116 H Alkaline Phosphatase 102 C-Reactive Protein 2.0 H Total Protein 7.0 Albumin 3.2 L Urine Color Urine Appearance Urine pH Ur Specific [place] Urine Protein Urine Glucose (UA) Urine Ketones Urine Blood Urine Nitrite Urine Bilirubin Urine Urobilinogen Ur Leukocyte Esterase Urine WBC (Auto) Urine RBC (Auto) Urine Casts (Auto) U Pathogenic Cast Auto U Epithel Cells (Auto) U Sm Round Cell (Auto) Urine Bacteria (Auto) 09/21/19 09/21/19 09/21/19 14:35 14:35 14:35 WBC RBC Hgb Hct MCV MCH MCHC RDW Plt Count MPV Absolute Neuts (auto) Neutrophils % Lymphocytes % Monocytes % Eosinophils % Basophils % Nucleated RBC % ESR 21 H Sodium Potassium Chloride Carbon Dioxide Anion Gap BUN Creatinine Est GFR (CKD-EPI)AfAm Est GFR (CKD-EPI)NonAf Random Glucose Lactic Acid 1.7 Calcium Total Bilirubin AST ALT Alkaline Phosphatase C-Reactive Protein Total Protein Albumin Urine Color Dk yellow Urine Appearance Cloudy Urine pH 5.0 Ur Specific [place] 1.037 H Urine Protein 2+ H Urine Glucose (UA) Negative Urine Ketones Trace H Urine Blood Negative Urine Nitrite Positive H Urine Bilirubin 2+ H Urine Urobilinogen 1.0 Ur Leukocyte Esterase Trace Urine WBC (Auto) 12 Urine RBC (Auto) 4 Urine Casts (Auto) 108 U Pathogenic Cast Auto Negative U Epithel Cells (Auto) 9.7 U Sm Round Cell (Auto) Negative Urine Bacteria (Auto) 1.2 S1 S2 RRR Lung decreased Abd- soft, NT, BS+ edema++ PLAN continue with methadone protocol IV antibiotics-- vanco IV antifungals Spoke with ID echo-- no vegetations Sono legs-- no DVT iv fluids Heparin sc for DVT prophylaxis Problem List - Problems (1) IVDU (intravenous drug user) Code(s): F19.90 - OTHER PSYCHOACTIVE SUBSTANCE USE, UNSPECIFIED, UNCOMPLICATED (2) Asthma Code(s): J45.909 - UNSPECIFIED ASTHMA, UNCOMPLICATED (3) Blood culture positive for Aziza species Code(s): B37.9 - CANDIDIASIS, UNSPECIFIED (4) COPD (chronic obstructive pulmonary disease) Code(s): J44.9 - CHRONIC OBSTRUCTIVE PULMONARY DISEASE, UNSPECIFIED (5) Hip pain Code(s): M25.559 - PAIN IN UNSPECIFIED HIP Qualifiers: Laterality: right Qualified Code(s): M25.551 - Pain in right hip
--- NOTE | 2019-09-22 10:48 | EKG ---
Test Reason : Blood Pressure : / mmHG Vent. Rate : 065 BPM Atrial Rate : 065 BPM P-R Int : 154 ms QRS Dur : 092 ms QT Int : 414 ms P-R-T Axes : 064 075 030 degrees QTc Int : 430 ms NORMAL SINUS RHYTHM WITH SINUS ARRHYTHMIA NORMAL ECG NO PREVIOUS ECGS AVAILABLE Confirmed by ERNST SIMON, LAWRENCE ([id number]) on 09/22/2019 10:47:55 AM Referred By: Confirmed By:LAWRENCE DUKES MD
--- NOTE | 2019-09-22 11:01 | PN ---
Progress Note (short form) - Note Progress Note: s: no chest pain, palps, dizziness, dyspnea Current Medications Clonidine (Catapres -) 0.1 mg PO Q4H PRN PRN Reason: Withdrawal Symptoms Stop: 09/23/19 23:59 Heparin Sodium (Porcine) (Heparin -) 5,000 unit SQ BID HAJA Last Admin: 09/22/19 09:40 Dose: 5,000 unit Dextrose/Sodium Chloride (Dextrose 5%-Normal Saline+20 Meq Kcl -) 20 meq in 1, 000 mls @ 100 mls/hr IV ASDIR HAJA Last Admin: 09/21/19 20:22 Dose: 100 mls/hr Caspofungin 50 mg/ Sodium (Chloride) 250 mls @ 250 mls/hr IVPB Q24H HAJA Vancomycin HCl (Vancomycin (Pre-Docked)) 1,000 mg in 250 mls @ 166.667 mls/hr IVPB Q12H HAJA; Protocol Last Admin: 09/22/19 06:10 Dose: 166.667 mls/hr Methadone HCl 10 mg/ Methadone (HCl 5 mg) 15 mg PO ONCE ONE Stop: 09/24/19 10:01 Methadone HCl (Dolophine -) 5 mg PO ONCE@0600 ONE Stop: 09/26/19 06:01 Methadone HCl (Dolophine -) 10 mg PO ONCE ONE Stop: 09/25/19 10:01 Methadone HCl (Dolophine -) 20 mg PO ONCE ONE Stop: 09/23/19 10:01 Pantoprazole Sodium (Protonix -) 40 mg PO DAILY [facility] Last Admin: 09/22/19 09:40 Dose: 40 mg Vital Signs Period Temp Pulse Resp BP Sys/Palacios Pulse Ox Last 24 Hr 97.2 F-98 F 74-75 18-18 98-98/44-50 98-99 Constitutional: Yes: No Distress, Calm Eyes: Yes: Conjunctiva Clear, EOM Intact HENT: Yes: Atraumatic, Normocephalic Neck: Yes: Trachea Midline Respiratory: Yes: CTA Bilaterally Gastrointestinal: Yes: Soft (NT) Cardiovascular: Yes: Regular Rate and Rhythm JVD: No PMI: Non-Displaced Heart Sounds: Yes: S1, S2 (rrr, NO MURMURS) Musculoskeletal: Yes: Other (right hip pain) Extremities: Yes: Other (track kingston on arms/hands) Edema: No Neurological: Yes: Alert, Oriented no jaundice, diaphoresis not agitated NSR at 65 bpm, normal CA interval Echo: Pending Imaging - Results EKG: Image Reviewed tele: sinus alexandra Assessment/Plan IMP: Active IVDA (heroin) Positive blood cultures (by report yeast) Right hip pain, r/o osteo REC: 1. Serial blood cultures pending; imaging of right hip as per PMD 2. Echo - no vegetations, no significant valvular pathology, normal LV function. less likely endocarditis 3. ID consult and abx as per ID 4. Telemetry, daily ECGs 5. Watch / treat for opiate withdrawal as per PMD
[2019-09-22 12:02] LABS: BASO % 0.7 % (0-2.0); EOS % 3.5 % (0-4.5); HEMATOCRIT 37.5 % (35.4-49); HEMOGLOBIN 12.6 GM/dL (11.7-16.9); LYMPH % 42.8 % (8-40); MCH 31.4 pg (25.7-33.7); MCHC 33.6 g/dl (32.0-35.9); MEAN CELL VOLUME 93.4 fl (80-96); MEAN PLT VOLUME 7.8 fl (7.5-11.1); MONO % 8.7 % (3.8-10.2); NEUT % 44.3 % (42.8-82.8); PLATELET COUNT 365 K/MM3 (134-434); RBC 4.02 M/mm3 (4.00-5.60); RDW 14.8 % (11.9-15.9); WHITE BLOOD COUNT 7.5 K/mm3 (4.0-10.0)
--- NOTE | 2019-09-22 12:16 | PN ---
Progress Note (short form) - Note Progress Note: seen earlier this am in the ER Vital Signs Period Temp Pulse Resp BP Sys/Palacios Pulse Ox Last 24 Hr 97.2 F-98 F 74-75 18-18 98-98/44-50 98-99 cor-rrr lungs clear abd soft,nt ext + edema RLE, minimal erythema CBC, BMP 09/22/19 11:50 blood cultures pending duplex no DVT sonogram HSM a/p fungemia Left hip pain IVDU abnl lfts hep c cellulitis RLE continue cancidas and vancomycin f/u cultures MRI pending orhto eval pending d/w PMD Problem List - Problems (1) Blood culture positive for Aziza species Code(s): B37.9 - CANDIDIASIS, UNSPECIFIED (2) Hip pain Code(s): M25.559 - PAIN IN UNSPECIFIED HIP Qualifiers: Laterality: right Qualified Code(s): M25.551 - Pain in right hip (3) Cellulitis of right leg Code(s): L03.115 - CELLULITIS OF RIGHT LOWER LIMB (4) Hep C w/o coma, chronic Code(s): B18.2 - CHRONIC VIRAL HEPATITIS C (5) IVDU (intravenous drug user) Code(s): F19.90 - OTHER PSYCHOACTIVE SUBSTANCE USE, UNSPECIFIED, UNCOMPLICATED
[2019-09-22 12:32] LABS: ALBUMIN 2.9 g/dl (3.4-5.0); BILIRUBIN,TOTAL 0.8 mg/dL (0.2-1); BLOOD UREA NITROGEN 6.8 mg/dL (7-18); CALCIUM 8.9 mg/dL (8.5-10.1); CREATININE 0.6 mg/dL (0.55-1.3); POTASSIUM 3.7 mmol/L (3.5-5.1); TOT PROT 6.6 g/dl (6.4-8.2)
[2019-09-22] MEDS: CASPOFUNGIN ACETATE 50 MG in SODIUM CHLORIDE 250 ML IVPB SCH (16:28)
[2019-09-22] MEDS: D5-NS + 20 MEQ KCL - 20 MEQ/1,000 ML INFUS.BAG IV SCH (18:23)
[2019-09-22] MEDS ORDERED: PNEUMOC 13-VAL CONJ-DIP CRM/PF 0.5 ML DISP.SYRIN IM ONE (19:24)
[2019-09-22] MEDS ORDERED: FLU VACCINE QUAD 60 MCG/0.5 ML (MDV 19-20) IM ONE (21:00)
[2019-09-22] MEDS ORDERED: PNEUMOCOCCAL 23 VACCINE 0.5 ML VIAL IM ONE (21:00)
[2019-09-22] MEDS: NICOTINE 7 MG/24 HOURS TOPICAL PATCH TD SCH (21:33)
[2019-09-22] MEDS: cloNIDine HCL 0.1 MG TABLET PO PRN (21:44)
[2019-09-23] MEDS: VANCOMYCIN 1 GRAM (PRE-DOCKED) 1,000 MG/250 ML BAG IVPB SCH (06:08)
[2019-09-23] MEDS: cloNIDine HCL 0.1 MG TABLET PO PRN ×2 (06:08→22:22)
[2019-09-23 07:48] LABS: BASO % 0.6 % (0-2.0); EOS % 4.5 % (0-4.5); HEMATOCRIT 37.1 % (35.4-49); HEMOGLOBIN 12.5 GM/dL (11.7-16.9); MCH 31.5 pg (25.7-33.7); MCHC 33.7 g/dl (32.0-35.9); MEAN CELL VOLUME 93.3 fl (80-96); MEAN PLT VOLUME 8.8 fl (7.5-11.1); MONO % 8.8 % (3.8-10.2); NEUT % 50.1 % (42.8-82.8); PLATELET COUNT 288 K/MM3 (134-434); RBC 3.98 M/mm3 (4.00-5.60); RDW 14.5 % (11.9-15.9); WHITE BLOOD COUNT 8.6 K/mm3 (4.0-10.0)
[2019-09-23 07:55] LABS: ALBUMIN 2.6 g/dl (3.4-5.0); BILIRUBIN,TOTAL 0.6 mg/dL (0.2-1); BLOOD UREA NITROGEN 6.2 mg/dL (7-18); CALCIUM 8.7 mg/dL (8.5-10.1); CREATININE 0.6 mg/dL (0.55-1.3); POTASSIUM 3.7 mmol/L (3.5-5.1)
[2019-09-23] MEDS: PANTOPRAZOLE 40 MG TABLET (FP) PO SCH (09:38)
[2019-09-23] MEDS: HEPARIN NA (PORCINE) 5,000 UNITS/ML 1ML VIAL SQ SCH ×2 (09:39→22:22)
[2019-09-23] MEDS ORDERED: METHADONE HCL 5 MG TABLET (FOR DETOX USE ONLY) ONE (09:41)
[2019-09-23] MEDS: NICOTINE 7 MG/24 HOURS TOPICAL PATCH TD SCH (09:49)
[2019-09-23] MEDS ORDERED: METHADONE HCL 10 MG TABLET (FOR DETOX USE ONLY) PO ONE (10:00)
[2019-09-23] MEDS ORDERED: METHADONE HCL 5 MG TABLET (FOR DETOX USE ONLY) PO ONE (10:00)
--- NOTE | 2019-09-23 10:01 | PN ---
Progress Note, Physician Chief Complaint: repeat cultures remain negative Denies CP, SOB, palps. TELE: Sinus, sinus alexandra during early AM hours. - Current Medication List Current Medications: Active Medications Clonidine (Catapres -) 0.1 mg PO Q4H PRN PRN Reason: Withdrawal Symptoms Stop: 09/23/19 23:59 Last Admin: 09/23/19 06:08 Dose: 0.1 mg Heparin Sodium (Porcine) (Heparin -) 5,000 unit SQ BID HAJA Last Admin: 09/23/19 09:39 Dose: 5,000 unit Dextrose/Sodium Chloride (Dextrose 5%-Normal Saline+20 Meq Kcl -) 20 meq in 1, 000 mls @ 100 mls/hr IV ASDIR HAJA Last Admin: 09/22/19 18:23 Dose: 100 mls/hr Caspofungin 50 mg/ Sodium (Chloride) 250 mls @ 250 mls/hr IVPB Q24H HAJA Last Admin: 09/22/19 16:28 Dose: 250 mls/hr Vancomycin HCl (Vancomycin (Pre-Docked)) 1,000 mg in 250 mls @ 166.667 mls/hr IVPB Q12H HAJA; Protocol Last Admin: 09/23/19 06:08 Dose: 166.667 mls/hr Methadone HCl 10 mg/ Methadone (HCl 5 mg) 15 mg PO ONCE ONE Stop: 09/24/19 10:01 Methadone HCl (Dolophine -) 5 mg PO ONCE@0600 ONE Stop: 09/26/19 06:01 Methadone HCl (Dolophine -) 10 mg PO ONCE ONE Stop: 09/25/19 10:01 Nicotine (Nicoderm Patch -) 7 mg TD DAILY [facility] Last Admin: 09/23/19 09:49 Dose: 7 mg Pantoprazole Sodium (Protonix -) 40 mg PO DAILY [facility] Last Admin: 09/23/19 09:38 Dose: 40 mg - Objective Vital Signs: Vital Signs Temperature 98.2 F 09/23/19 06:00 Pulse Rate 48 L 09/23/19 06:00 Respiratory Rate 20 09/23/19 08:07 Blood Pressure 137/77 09/23/19 06:00 O2 Sat by Pulse Oximetry (%) 97 09/22/19 21:00 Constitutional: Yes: No Distress, Calm Cardiovascular: Yes: Regular Rate and Rhythm (NO MURMURS) Respiratory: Yes: CTA Bilaterally Gastrointestinal: Yes: Soft (NT) Edema: No Neurological: Yes: Alert, Oriented ...Motor Strength: WNL Labs: CBC, BMP 09/23/19 05:44 09/23/19 05:44 Microbiology 09/21/19 14:35 Blood - Peripheral Venous Blood Culture - Preliminary NO GROWTH OBTAINED AFTER 24 HOURS, INCUBATION TO CONTINUE FOR 4 DAYS. 09/21/19 14:35 Blood - Peripheral Venous Blood Culture - Preliminary NO GROWTH OBTAINED AFTER 24 HOURS, INCUBATION TO CONTINUE FOR 4 DAYS. Laboratory Tests 09/23/19 09/23/19 05:44 05:44 WBC 8.6 Hgb 12.5 Plt Count 288 D Sodium 144 Potassium 3.7 Creatinine 0.6 - ....Imaging EKG: Image Reviewed Assessment/Plan Assessment/Plan IMP: Active IVDA (heroin) Fungemia Right hip pain, r/o osteo REC: 1. F/u surveillance cultures remain NGTD; R. hip MRI results pending. 2. Echo - no vegetations, no significant valvular pathology, normal LV function. less likely endocarditis 3. ID consulted. Abx as per ID 4. Telemetry, daily ECGs while this work up is completed. 5. Watch / treat for opiate withdrawal as per PMD (on Methadone)
--- NOTE | 2019-09-23 10:47 | PN ---
Progress Note (short form) - Note Progress Note: Sleepy from Methadone Does not want to eat 'has right hip pain DR almazan [facility] not available during this week Vital Signs - 24 hr 09/22/19 09/22/19 09/22/19 18:49 21:00 22:00 Temperature 98.2 F 98.7 F Pulse Rate 77 65 Respiratory 16 18 Rate Blood Pressure 102/54 L 120/67 O2 Sat by Pulse 96 97 Oximetry (%) 09/23/19 09/23/19 09/23/19 02:26 06:00 08:07 Temperature 98.0 F 98.2 F Pulse Rate 80 48 L Respiratory 18 20 20 Rate Blood Pressure 140/57 L 137/77 O2 Sat by Pulse Oximetry (%) 09/23/19 09/23/19 10:00 14:00 Temperature 98.8 F 98.3 F Pulse Rate 58 L 47 L Respiratory 21 H 20 Rate Blood Pressure 123/95 93/51 L O2 Sat by Pulse Oximetry (%) Current Medications Generic Name Dose Route Start Last Admin Trade Name Freq PRN Reason Stop Dose Admin Clonidine 0.1 mg 09/21/19 15:55 09/23/19 06:08 Catapres - PO 09/23/19 23:59 0.1 mg Q4H PRN Administration Withdrawal Symptoms Heparin Sodium (Porcine) 5,000 unit 09/21/19 22:00 09/23/19 09:39 Heparin - SQ 5,000 unit BID HAJA Administration Dextrose/Sodium Chloride 20 meq in 1,000 mls @ 100 mls/hr 09/21/19 16:15 16:36 Dextrose 5%-Normal Saline+20 Meq Kcl - IV 100 mls/hr ASDIR HAJA Administration Caspofungin 50 mg/ Sodium 250 mls @ 250 mls/hr 09/22/19 16:45 09/23/19 16:36 Chloride IVPB 250 mls/hr Q24H HAJA Administration Methadone HCl 10 mg/ Methadone 15 mg 09/24/19 10:00 HCl 5 mg PO 09/24/19 10:01 ONCE ONE Methadone HCl 5 mg 09/26/19 06:00 Dolophine - PO 09/26/19 06:01 ONCE@0600 ONE Methadone HCl 10 mg 09/25/19 10:00 Dolophine - PO 09/25/19 10:01 ONCE ONE Nicotine 7 mg 09/22/19 19:00 09/23/19 09:49 Nicoderm Patch - TD 7 mg DAILY HAJA Administration Pantoprazole Sodium 40 mg 09/22/19 10:00 09/23/19 09:38 Protonix - PO 40 mg DAILY HAJA Administration Laboratory Results - last 24 hr 09/22/19 09/23/19 09/23/19 06:30 05:44 05:44 WBC 8.6 RBC 3.98 L Hgb 12.5 Hct 37.1 MCV 93.3 MCH 31.5 MCHC 33.7 RDW 14.5 Plt Count 288 D MPV 8.8 D Absolute Neuts (auto) 4.3 Neutrophils % 50.1 Lymphocytes % 36.0 Monocytes % 8.8 Eosinophils % 4.5 Basophils % 0.6 Nucleated RBC % 0 Sodium 144 Potassium 3.7 Chloride 110 H Carbon Dioxide 26 Anion Gap 7 L BUN 6.2 L Creatinine 0.6 Est GFR (CKD-EPI)AfAm 147.82 Est GFR (CKD-EPI)NonAf 127.55 Random Glucose 89 Calcium 8.7 Total Bilirubin 0.6 AST 47 H ALT 88 H Alkaline Phosphatase 95 Total Protein 6.0 L Albumin 2.6 L Hep A IgM Ab Confirm Negative Hepatitis A Ab Total Negative Hep B Core IgM Ab Negative Lung decreased Abd- soft, NT, BS+ edema++ PLAN continue with methadone protocol IV antifungals Spoke with ID echo-- no vegetations Sono legs-- no DVT iv fluids Heparin sc for DVT prophylaxis Problem List - Problems (1) IVDU (intravenous drug user) Code(s): F19.90 - OTHER PSYCHOACTIVE SUBSTANCE USE, UNSPECIFIED, UNCOMPLICATED (2) Asthma Code(s): J45.909 - UNSPECIFIED ASTHMA, UNCOMPLICATED (3) Blood culture positive for Aziza species Code(s): B37.9 - CANDIDIASIS, UNSPECIFIED (4) COPD (chronic obstructive pulmonary disease) Code(s): J44.9 - CHRONIC OBSTRUCTIVE PULMONARY DISEASE, UNSPECIFIED (5) Hip pain Code(s): M25.559 - PAIN IN UNSPECIFIED HIP Qualifiers: Laterality: right Qualified Code(s): M25.551 - Pain in right hip
--- NOTE | 2019-09-23 11:46 | PN ---
Progress Note (short form) - Note Progress Note: alert still with hip pain Vital Signs Period Temp Pulse Resp BP Sys/Palacios Pulse Ox Last 24 Hr 97.9 F-98.8 F 48-80 16-21 94-140/54-95 95-97 cor-rrr lungs clear abd soft,nt ext minimal edema, erythema resolved MRI pending CBC, BMP 09/23/19 05:44 09/23/19 05:44 Microbiology 09/21/19 14:35 Blood - Peripheral Venous Blood Culture - Preliminary NO GROWTH OBTAINED AFTER 24 HOURS, INCUBATION TO CONTINUE FOR 4 DAYS. 09/21/19 14:35 Blood - Peripheral Venous Blood Culture - Preliminary NO GROWTH OBTAINED AFTER 24 HOURS, INCUBATION TO CONTINUE FOR 4 DAYS. duplex no DVT sonogram HSM a/p fungemia Left hip pain IVDU abnl lfts hep c cellulitis RLE continue cancidas d/c vancomycin MRI reading pending ortho eval pending Problem List - Problems (1) Blood culture positive for Aziza species Code(s): B37.9 - CANDIDIASIS, UNSPECIFIED (2) Hip pain Code(s): M25.559 - PAIN IN UNSPECIFIED HIP Qualifiers: Laterality: right Qualified Code(s): M25.551 - Pain in right hip (3) Cellulitis of right leg Code(s): L03.115 - CELLULITIS OF RIGHT LOWER LIMB (4) Hep C w/o coma, chronic Code(s): B18.2 - CHRONIC VIRAL HEPATITIS C (5) IVDU (intravenous drug user) Code(s): F19.90 - OTHER PSYCHOACTIVE SUBSTANCE USE, UNSPECIFIED, UNCOMPLICATED
[2019-09-23] MEDS: D5-NS + 20 MEQ KCL - 20 MEQ/1,000 ML INFUS.BAG IV SCH (16:36)
[2019-09-23] MEDS: CASPOFUNGIN ACETATE 50 MG in SODIUM CHLORIDE 250 ML IVPB SCH (16:36)
[2019-09-24 07:40] LABS: BASO % 0.7 % (0-2.0); EOS % 4.6 % (0-4.5); HEMATOCRIT 35.4 % (35.4-49); HEMOGLOBIN 12.1 GM/dL (11.7-16.9); LYMPH % 35.6 % (8-40); MCHC 34.3 g/dl (32.0-35.9); MEAN CELL VOLUME 93.3 fl (80-96); MONO % 8.1 % (3.8-10.2); PLATELET COUNT 301 K/MM3 (134-434); RDW 14.3 % (11.9-15.9); WHITE BLOOD COUNT 9.2 K/mm3 (4.0-10.0)
[2019-09-24 08:05] LABS: ALBUMIN 2.6 g/dl (3.4-5.0); BILIRUBIN,TOTAL 0.3 mg/dL (0.2-1); CALCIUM 8.2 mg/dL (8.5-10.1); CREATININE 0.6 mg/dL (0.55-1.3); TOT PROT 5.9 g/dl (6.4-8.2)
[2019-09-24] MEDS ORDERED: METHADONE HCL 5 MG TABLET (FOR DETOX USE ONLY) ONE (09:45)
[2019-09-24] MEDS: HEPARIN NA (PORCINE) 5,000 UNITS/ML 1ML VIAL SQ SCH ×2 (09:48→21:37)
[2019-09-24] MEDS: PANTOPRAZOLE 40 MG TABLET (FP) PO SCH (09:48)
[2019-09-24] MEDS: NICOTINE 7 MG/24 HOURS TOPICAL PATCH TD SCH (09:50)
[2019-09-24] MEDS ORDERED: METHADONE (DETOX) 10 MG, METHADONE (DETOX) 5 MG PO ONE (10:00)
--- NOTE | 2019-09-24 10:03 | PN ---
Progress Note, Physician Chief Complaint: ambulating No CP or SOB TELE: NSR - Current Medication List Current Medications: Active Medications Heparin Sodium (Porcine) (Heparin -) 5,000 unit SQ BID [facility] Last Admin: 09/24/19 09:48 Dose: 5,000 unit Dextrose/Sodium Chloride (Dextrose 5%-Normal Saline+20 Meq Kcl -) 20 meq in 1, 000 mls @ 100 mls/hr IV ASDIR [facility] Last Admin: 09/23/19 16:36 Dose: 100 mls/hr Caspofungin 50 mg/ Sodium (Chloride) 250 mls @ 250 mls/hr IVPB Q24H [facility] Last Admin: 09/23/19 16:36 Dose: 250 mls/hr Methadone HCl (Dolophine -) 5 mg PO ONCE@0600 ONE Stop: 09/26/19 06:01 Methadone HCl (Dolophine -) 10 mg PO ONCE ONE Stop: 09/25/19 10:01 Nicotine (Nicoderm Patch -) 7 mg TD DAILY [facility] Last Admin: 09/24/19 09:50 Dose: 7 mg Pantoprazole Sodium (Protonix -) 40 mg PO DAILY [facility] Last Admin: 09/24/19 09:48 Dose: 40 mg - Objective Vital Signs: Vital Signs Temperature 98.7 F 09/24/19 02:00 Pulse Rate 62 09/24/19 06:00 Respiratory Rate 20 09/24/19 06:00 Blood Pressure 133/68 09/24/19 06:00 O2 Sat by Pulse Oximetry (%) 97 09/22/19 21:00 Constitutional: Yes: Calm Cardiovascular: Yes: Regular Rate and Rhythm (NO MURMURS) Respiratory: Yes: CTA Bilaterally Gastrointestinal: Yes: Soft Edema: No Peripheral Pulses WNL: Yes Neurological: Yes: Alert, Oriented Labs: CBC, BMP 09/24/19 05:40 09/24/19 05:40 Microbiology 09/21/19 14:35 Blood - Peripheral Venous Blood Culture - Preliminary NO GROWTH OBTAINED AFTER 48 HOURS, INCUBATION TO CONTINUE FOR 3 DAYS. 09/21/19 14:35 Blood - Peripheral Venous Blood Culture - Preliminary NO GROWTH OBTAINED AFTER 48 HOURS, INCUBATION TO CONTINUE FOR 3 DAYS. Laboratory Tests 09/24/19 09/24/19 05:40 05:40 WBC 9.2 Hgb 12.1 Plt Count 301 Sodium 144 Potassium 4.0 Creatinine 0.6 AST 42 H ALT 81 H Alkaline Phosphatase 100 - ....Imaging EKG: Image Reviewed Assessment/Plan IMP: Active IVDA (heroin) Fungemia Right hip pain, r/o osteo REC: 1. F/u surveillance cultures remain NGTD; R. hip MRI results pending official read. 2. Echo - no vegetations, no significant valvular pathology, normal LV function. less likely endocarditis 3. ID consulted. Abx as per ID 4. Telemetry, daily ECGs while this work up is completed. 5. Watch / treat for opiate withdrawal as per PMD (on Methadone)
--- NOTE | 2019-09-24 11:31 | PN ---
Progress Note (short form) - Note Progress Note: awake eating better 'has right hip pain DR [facility] not available during this week Vital Signs - 24 hr 09/23/19 09/23/19 09/23/19 14:00 18:00 22:00 Temperature 98.3 F 98.2 F 98.1 F Pulse Rate 47 L 51 L 55 L Respiratory 20 20 20 Rate Blood Pressure 93/51 L 96/51 L 126/73 O2 Sat by Pulse Oximetry (%) 09/24/19 09/24/19 09/24/19 02:00 06:00 09:00 Temperature 98.7 F Pulse Rate 64 62 Respiratory 20 20 20 Rate Blood Pressure 101/47 L 133/68 O2 Sat by Pulse 99 Oximetry (%) 09/24/19 10:00 Temperature 98.6 F Pulse Rate 57 L Respiratory 20 Rate Blood Pressure 111/69 O2 Sat by Pulse Oximetry (%) Current Medications Generic Name Dose Route Start Last Admin Trade Name Freq PRN Reason Stop Dose Admin Heparin Sodium (Porcine) 5,000 unit 09/21/19 22:00 09/24/19 09:48 Heparin - SQ 5,000 unit BID [facility] Administration Dextrose/Sodium Chloride 20 meq in 1,000 mls @ 100 mls/hr 09/21/19 16:15 16:36 Dextrose 5%-Normal Saline+20 Meq Kcl - IV 100 mls/hr ASDIR HAJA Administration Caspofungin 50 mg/ Sodium 250 mls @ 250 mls/hr 09/22/19 16:45 09/23/19 16:36 Chloride IVPB 250 mls/hr Q24H [facility]JA Administration Methadone HCl 5 mg 09/26/19 06:00 Dolophine - PO 09/26/19 06:01 ONCE@0600 ONE Methadone HCl 10 mg 09/25/19 10:00 Dolophine - PO 09/25/19 10:01 ONCE ONE Nicotine 7 mg 09/22/19 19:00 09/24/19 09:50 Nicoderm Patch - TD 7 mg DAILY [facility] Administration Pantoprazole Sodium 40 mg 09/22/19 10:00 09/24/19 09:48 Protonix - PO 40 mg DAILY [facility] Administration Laboratory Results - last 24 hr 09/24/19 09/24/19 05:40 05:40 WBC 9.2 RBC 3.80 L Hgb 12.1 Hct 35.4 MCV 93.3 MCH 32.0 MCHC 34.3 RDW 14.3 Plt Count 301 MPV 9.0 Absolute Neuts (auto) 4.7 Neutrophils % 51.0 Lymphocytes % 35.6 Monocytes % 8.1 Eosinophils % 4.6 H Basophils % 0.7 Nucleated RBC % 0 Sodium 144 Potassium 4.0 Chloride 112 H Carbon Dioxide 28 Anion Gap 3 L BUN 8.0 Creatinine 0.6 Est GFR (CKD-EPI)AfAm 147.82 Est GFR (CKD-EPI)NonAf 127.55 Random Glucose 117 H Calcium 8.2 L Total Bilirubin 0.3 AST 42 H ALT 81 H Alkaline Phosphatase 100 Total Protein 5.9 L Albumin 2.6 L S1 S2 RRR Lung decreased Abd- soft, NT, BS+ edema++ PLAN continue with methadone protocol IV caspofungin echo-- no vegetations Sono legs-- no DVT iv fluids dc Ortho eval pending Heparin sc for DVT prophylaxis MRI done-- report pending Problem List - Problems (1) IVDU (intravenous drug user) Code(s): F19.90 - OTHER PSYCHOACTIVE SUBSTANCE USE, UNSPECIFIED, UNCOMPLICATED (2) Asthma Code(s): J45.909 - UNSPECIFIED ASTHMA, UNCOMPLICATED (3) Blood culture positive for Aziza species Code(s): B37.9 - CANDIDIASIS, UNSPECIFIED (4) COPD (chronic obstructive pulmonary disease) Code(s): J44.9 - CHRONIC OBSTRUCTIVE PULMONARY DISEASE, UNSPECIFIED (5) Hip pain Code(s): M25.559 - PAIN IN UNSPECIFIED HIP Qualifiers: Laterality: right Qualified Code(s): M25.551 - Pain in right hip
--- NOTE | 2019-09-24 15:29 | PN ---
Progress Note (short form) - Note Progress Note: Pt seen and examined. In short he c/o severe pain with weight bearing at the right hip for quite some time, getting worse recently. He admits to having a past problem with alcohol, and a past and current problem with heroin. Denies trauma, denies use of oral steroids, denies any blood dyscrasias. PE Pt able to ambulate but he is in a lot of pain in the right hip with any weight bearing. Limited ROM of the right hip. 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 MRI Confirms findings, nothing else. 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 Rec P.T., WBAT Right THR when off heroin and cleared medically.
[2019-09-24] MEDS: CASPOFUNGIN ACETATE 50 MG in SODIUM CHLORIDE 250 ML IVPB SCH (17:11)
[2019-09-24] MEDS: ACETAMINOPHEN 325 MG TABLET (FP) PO PRN (19:42)
[2019-09-24 21:11] LABS: HEP B CORE AB, TOT Negative (Negative)
[2019-09-24] MEDS: cloNIDine HCL 0.1 MG TABLET PO PRN (21:37)
[2019-09-25 07:51] LABS: HEMATOCRIT 37.2 % (35.4-49); HEMOGLOBIN 12.5 GM/dL (11.7-16.9); MCH 31.3 pg (25.7-33.7); MCHC 33.6 g/dl (32.0-35.9); MEAN CELL VOLUME 93.1 fl (80-96); MEAN PLT VOLUME 9.1 fl (7.5-11.1); PLATELET COUNT 327 K/MM3 (134-434); RDW 14.6 % (11.9-15.9); WHITE BLOOD COUNT 9.8 K/mm3 (4.0-10.0)
[2019-09-25 08:03] LABS: ALBUMIN 2.7 g/dl (3.4-5.0); BILIRUBIN,TOTAL 0.4 mg/dL (0.2-1); BLOOD UREA NITROGEN 9.7 mg/dL (7-18); CALCIUM 8.9 mg/dL (8.5-10.1); CREATININE 0.7 mg/dL (0.55-1.3); TOT PROT 6.2 g/dl (6.4-8.2)
--- NOTE | 2019-09-25 08:19 | PN ---
Progress Note, Physician Chief Complaint: fungemia History of Present Illness: severe R hip pain feels mild tightness in breathing--c/w his chronic intermittent asthma sx denies orthopnea/PND no severe sob episodes no cp, palp, syncope - Current Medication List Current Medications: Active Medications Acetaminophen (Tylenol -) 650 mg PO Q6H PRN PRN Reason: PAIN LEVEL 1-5 Last Admin: 09/24/19 19:42 Dose: 650 mg Clonidine (Catapres -) 0.1 mg PO Q4H PRN PRN Reason: HYPERTENSION Last Admin: 09/24/19 21:37 Dose: 0.1 mg Heparin Sodium (Porcine) (Heparin -) 5,000 unit SQ BID [facility] Last Admin: 09/24/19 21:37 Dose: 5,000 unit Caspofungin 50 mg/ Sodium (Chloride) 250 mls @ 250 mls/hr IVPB Q24H [facility] Last Admin: 09/24/19 17:11 Dose: 250 mls/hr Methadone HCl (Dolophine -) 5 mg PO ONCE@0600 ONE Stop: 09/26/19 06:01 Methadone HCl (Dolophine -) 10 mg PO ONCE ONE Stop: 09/25/19 10:01 Nicotine (Nicoderm Patch -) 7 mg TD DAILY [facility] Last Admin: 09/24/19 09:50 Dose: 7 mg Pantoprazole Sodium (Protonix -) 40 mg PO DAILY [facility] Last Admin: 09/24/19 09:48 Dose: 40 mg - Objective Vital Signs: Vital Signs Temperature 98.5 F 09/25/19 02:00 Pulse Rate 64 09/25/19 02:00 Respiratory Rate 20 09/25/19 02:00 Blood Pressure 109/53 L 09/25/19 02:00 O2 Sat by Pulse Oximetry (%) 99 09/24/19 21:00 Constitutional: Yes: Well Nourished, No Distress, Calm Cardiovascular: Yes: Regular Rate and Rhythm, S1, S2. No: Gallop, Murmur Respiratory: Yes: Regular, CTA Bilaterally. No: Accessory Muscle Use, Rales, Wheezes Extremities: No: Cold Edema: No Neurological: Yes: Alert, Oriented Psychiatric: No: Agitated Labs: CBC, BMP 09/25/19 06:05 09/25/19 06:05 Assessment/Plan Echo 09/14: nl LV/RV. normal valve morphology and function, no vegetation IMP: Active IVDA (heroin) Fungemia (on outpatient blood cultures) Right hip pain, severe R > L AVN on MRI without signs of osteomyelitis REC: 1. surveillance cultures remain NGTD 2. Echo - no vegetations, normal valvular function: endocarditis appears clinically unlikely 3. plan per ID 4. d/c tele 5. treatment for opiate withdrawal as per PMD (on Methadone) 6. hemodynamically stable, normal temp curve
[2019-09-25] MEDS ORDERED: METHADONE HCL 10 MG TABLET (FOR DETOX USE ONLY) PO ONE (10:00)
[2019-09-25] MEDS ORDERED: PT OWN MED DRAWER 7, Y5N ONE ×2 (10:03→16:49)
[2019-09-25] MEDS ORDERED: METHADONE HCL 5 MG TABLET (FOR DETOX USE ONLY) ONE (10:09)
[2019-09-25] MEDS: PANTOPRAZOLE 40 MG TABLET (FP) PO SCH (10:13)
[2019-09-25] MEDS: NICOTINE 7 MG/24 HOURS TOPICAL PATCH TD SCH (10:13)
[2019-09-25] MEDS: HEPARIN NA (PORCINE) 5,000 UNITS/ML 1ML VIAL SQ SCH ×2 (10:13→22:26)
[2019-09-25] MEDS ORDERED: METHADONE HCL 5 MG TABLET (FOR DETOX USE ONLY) PO ONE (10:15)
--- NOTE | 2019-09-25 11:55 | PN ---
Progress Note (short form) - Note Progress Note: alert still with hip pain now gives history of 3 years of right sided hip pain was told he had sciatica- states he started using heroine about a year ago for the pain MRI with AVN no osteomyelitis no vision complaints Vital Signs Period Temp Pulse Resp BP Sys/Palacios Pulse Ox Last 24 Hr 98.4 F-99.1 F 54-64 20-20 109-149/50-74 99 cor-rrr lungs clear abd soft,nt ext no edema CBC, BMP 09/25/19 06:05 09/25/19 06:05 Microbiology 09/21/19 14:35 Blood - Peripheral Venous Blood Culture - Preliminary NO GROWTH OBTAINED AFTER 72 HOURS, INCUBATION TO CONTINUE FOR 2 DAYS. 09/21/19 14:35 Blood - Peripheral Venous Blood Culture - Preliminary NO GROWTH OBTAINED AFTER 72 HOURS, INCUBATION TO CONTINUE FOR 2 DAYS. duplex no DVT sonogram [facility] a/p fungemia-ideally should have optho exam to r/o eye disease hip pain- avn no osteo IVDU abnl lfts-somewhat improved hep c d/w dr alegria still has no results on outpt fungal cultures continue cancidas repeat esr/crp optho exam Problem List - Problems (1) Blood culture positive for Aziza species Code(s): B37.9 - CANDIDIASIS, UNSPECIFIED (2) Hip pain Code(s): M25.559 - PAIN IN UNSPECIFIED HIP Qualifiers: Laterality: right Qualified Code(s): M25.551 - Pain in right hip (3) Cellulitis of right leg Code(s): L03.115 - CELLULITIS OF RIGHT LOWER LIMB (4) Hep C w/o coma, chronic Code(s): B18.2 - CHRONIC VIRAL HEPATITIS C (5) IVDU (intravenous drug user) Code(s): F19.90 - OTHER PSYCHOACTIVE SUBSTANCE USE, UNSPECIFIED, UNCOMPLICATED
[2019-09-25] MEDS: ACETAMINOPHEN 325 MG TABLET (FP) PO PRN ×2 (13:15→22:25)
--- NOTE | 2019-09-25 13:33 | PN ---
Progress Note (short form) - Note Progress Note: awake eating better 'has right hip pain DR al[facility] not available during this week Vital Signs - 24 hr 09/24/19 09/24/19 09/24/19 13:45 18:00 21:00 Temperature 99.1 F 98.4 F Pulse Rate 56 L 54 L Respiratory 20 20 Rate Blood Pressure 129/74 149/50 L O2 Sat by Pulse 99 Oximetry (%) 09/25/19 09/25/19 09/25/19 02:00 09:00 10:00 Temperature 98.5 F 98.7 F Pulse Rate 64 70 Respiratory 20 20 20 Rate Blood Pressure 109/53 L 107/50 L O2 Sat by Pulse 99 Oximetry (%) Current Medications Generic Name Dose Route Start Last Admin Trade Name Freq PRN Reason Stop Dose Admin Acetaminophen 650 mg 09/24/19 19:19 09/25/19 13:15 Tylenol - PO 650 mg Q6H PRN Administration PAIN LEVEL 1-5 Clonidine 0.1 mg 09/24/19 19:18 09/24/19 21:37 Catapres - PO 0.1 mg Q4H PRN Administration HYPERTENSION Heparin Sodium (Porcine) 5,000 unit 09/21/19 22:00 09/25/19 10:13 Heparin - SQ 5,000 unit BID [facility]JA Administration Caspofungin 50 mg/ Sodium 250 mls @ 250 mls/hr 09/22/19 16:45 09/24/19 17:11 Chloride IVPB 250 mls/hr Q24H HAJA Administration Methadone HCl 5 mg 09/26/19 06:00 Dolophine - PO 09/26/19 06:01 ONCE@0600 ONE Nicotine 7 mg 09/22/19 19:00 09/25/19 10:13 Nicoderm Patch - TD 7 mg DAILY [facility] Administration Pantoprazole Sodium 40 mg 09/22/19 10:00 09/25/19 10:13 Protonix - PO 40 mg DAILY HAJA Administration Laboratory Results - last 24 hr 09/22/19 09/25/19 09/25/19 06:30 06:05 06:05 WBC 9.8 RBC 4.00 Hgb 12.5 Hct 37.2 MCV 93.1 MCH 31.3 MCHC 33.6 RDW 14.6 Plt Count 327 MPV 9.1 Sodium 141 Potassium 4.0 Chloride 105 Carbon Dioxide 30 Anion Gap 6 L BUN 9.7 Creatinine 0.7 Est GFR (CKD-EPI)AfAm 138.75 Est GFR (CKD-EPI)NonAf 119.71 Random Glucose 100 Calcium 8.9 Total Bilirubin 0.4 AST 43 H ALT 82 H Alkaline Phosphatase 106 Total Protein 6.2 L Albumin 2.7 L Hep A IgM Ab Confirm Negative Hepatitis A Ab Total Negative Hep Bs Antigen Negative Hep Bs Antibody Non reactive Hep B Core Total Ab Negative Hep B Core IgM Ab Negative Hepatitis Be Antibody Negative Hepatitis Be Antigen Negative S1 S2 RRR Lung decreased Abd- soft, NT, BS+ edema++ PLAN continue with methadone protocol IV caspofungin echo-- no vegetations Sono legs-- no DVT iv fluids dc Ortho eval noted DVT prophylaxis MRI done-- report noted-- avascular necrosis spoke with ID-- pt has a 3 yrs h/o right hip pain-- MRI LS spine was done last year-- will speak with Radiologist on Friday to see if he can view the right hip on that MRI Problem List - Problems (1) IVDU (intravenous drug user) Code(s): F19.90 - OTHER PSYCHOACTIVE SUBSTANCE USE, UNSPECIFIED, UNCOMPLICATED (2) Asthma Code(s): J45.909 - UNSPECIFIED ASTHMA, UNCOMPLICATED (3) Blood culture positive for Aziza species Code(s): B37.9 - CANDIDIASIS, UNSPECIFIED (4) COPD (chronic obstructive pulmonary disease) Code(s): J44.9 - CHRONIC OBSTRUCTIVE PULMONARY DISEASE, UNSPECIFIED (5) Hip pain Code(s): M25.559 - PAIN IN UNSPECIFIED HIP Qualifiers: Laterality: right Qualified Code(s): M25.551 - Pain in right hip
[2019-09-25] MEDS: CASPOFUNGIN ACETATE 50 MG in SODIUM CHLORIDE 250 ML IVPB SCH (16:55)
[2019-09-25] MEDS: IBUPROFEN 600 MG TABLET (FP) PO PRN (16:59)
[2019-09-25] MEDS: cloNIDine HCL 0.1 MG TABLET PO PRN ×2 (17:42→22:31)
[2019-09-25] MEDS: MELATONIN 5 MG TABLETS PO PRN (22:26)
[2019-09-26] MEDS: cloNIDine HCL 0.1 MG TABLET PO PRN ×2 (05:31→09:25)
[2019-09-26] MEDS ORDERED: METHADONE HCL 5 MG TABLET (FOR DETOX USE ONLY) PO ONE (06:00)
[2019-09-26 07:00] LABS: BASO % 0.8 % (0-2.0); EOS % 7.4 % (0-4.5); HEMATOCRIT 39.4 % (35.4-49); HEMOGLOBIN 13.1 GM/dL (11.7-16.9); LYMPH % 32.2 % (8-40); MCH 31.2 pg (25.7-33.7); MCHC 33.3 g/dl (32.0-35.9); MEAN CELL VOLUME 93.6 fl (80-96); MEAN PLT VOLUME 9.5 fl (7.5-11.1); MONO % 9.3 % (3.8-10.2); NEUT % 50.3 % (42.8-82.8); PLATELET COUNT 278 K/MM3 (134-434); RBC 4.21 M/mm3 (4.00-5.60); RDW 14.5 % (11.9-15.9); WHITE BLOOD COUNT 9.2 K/mm3 (4.0-10.0)
[2019-09-26 07:34] LABS: ALBUMIN 2.7 g/dl (3.4-5.0); BILIRUBIN,TOTAL 0.5 mg/dL (0.2-1); BLOOD UREA NITROGEN 9.7 mg/dL (7-18); CALCIUM 8.7 mg/dL (8.5-10.1); CREATININE 0.6 mg/dL (0.55-1.3); POTASSIUM 3.7 mmol/L (3.5-5.1); TOT PROT 6.3 g/dl (6.4-8.2)
[2019-09-26] MEDS ORDERED: METHADONE HCL 5 MG TABLET (FOR PAIN ONLY) PO ONE (09:01)
--- NOTE | 2019-09-26 09:06 | PN ---
Progress Note (short form) - Note Progress Note: awake eating better 'has right hip pain DR al[facility] not available during this week difficulty in ambulating pt wants to go home feels Methadone 5 mg is not enough for him Vital Signs - 24 hr 09/25/19 09/25/19 09/25/19 10:00 14:00 20:55 Temperature 98.7 F 98.2 F 98.7 F Pulse Rate 70 51 L 57 L Respiratory 20 20 20 Rate Blood Pressure 107/50 L 115/50 L 129/72 O2 Sat by Pulse 100 Oximetry (%) 09/26/19 05:26 Temperature 97.9 F Pulse Rate 49 L Respiratory 20 Rate Blood Pressure 125/58 L O2 Sat by Pulse Oximetry (%) Current Medications Generic Name Dose Route Start Last Admin Trade Name Freq PRN Reason Stop Dose Admin Acetaminophen 650 mg 09/24/19 19:19 09/25/19 22:25 Tylenol - PO 650 mg Q6H PRN Administration PAIN LEVEL 1-5 Clonidine 0.1 mg 09/24/19 19:18 09/26/19 05:31 Catapres - PO 0.1 mg Q4H PRN Administration HYPERTENSION Heparin Sodium (Porcine) 5,000 unit 09/21/19 22:00 09/25/19 22:26 Heparin - SQ 5,000 unit BID HAJA Administration Caspofungin 50 mg/ Sodium 250 mls @ 250 mls/hr 09/22/19 16:45 09/25/19 16:55 Chloride IVPB 250 mls/hr Q24H HAJA Administration Ibuprofen 600 mg 09/25/19 13:33 09/25/19 16:59 Motrin - PO 600 mg Q6H PRN Administration FEVER Melatonin 5 mg 09/25/19 20:47 09/25/19 22:26 Melatonin PO 5 mg HS PRN Administration INSOMNIA Methadone HCl 5 mg 09/26/19 09:01 Dolophine - PO 09/26/19 09:02 ONCE ONE Nicotine 7 mg 09/22/19 19:00 09/25/19 10:13 Nicoderm Patch - TD 7 mg DAILY HAJA Administration Pantoprazole Sodium 40 mg 09/22/19 10:00 09/25/19 10:13 Protonix - PO 40 mg DAILY HAJA Administration Laboratory Results - last 24 hr 09/26/19 09/26/19 05:20 05:20 WBC 9.2 RBC 4.21 Hgb 13.1 Hct 39.4 MCV 93.6 MCH 31.2 MCHC 33.3 RDW 14.5 Plt Count 278 MPV 9.5 Absolute Neuts (auto) 4.6 Neutrophils % 50.3 Lymphocytes % 32.2 Monocytes % 9.3 Eosinophils % 7.4 H Basophils % 0.8 Nucleated RBC % 0 Sodium 140 Potassium 3.7 Chloride 106 Carbon Dioxide 29 Anion Gap 5 L BUN 9.7 Creatinine 0.6 Est GFR (CKD-EPI)AfAm 147.82 Est GFR (CKD-EPI)NonAf 127.55 Random Glucose 102 Calcium 8.7 Total Bilirubin 0.5 AST 45 H ALT 83 H Alkaline Phosphatase 101 Total Protein 6.3 L Albumin 2.7 L S1 S2 RRR Lung decreased Abd- soft, NT, BS+ edema++ PLAN continue with methadone protocol-->completed will give extra dose Methadone 5 mg today detox eval pending Clonidine as needed for withdrawals IV caspofungin echo-- no vegetations Sono legs-- no DVT iv fluids dc Ortho eval noted pt wants to do surgery elsewhere -->prefers [facility] DVT prophylaxis MRI done-- report noted-- avascular necrosis spoke with ID-- pt has a 3 yrs h/o right hip pain-- MRI LS spine was done last year-- will speak with Radiologist on Friday to see if he can view the right hip on that MRI Problem List - Problems (1) IVDU (intravenous drug user) Code(s): F19.90 - OTHER PSYCHOACTIVE SUBSTANCE USE, UNSPECIFIED, UNCOMPLICATED (2) Asthma Code(s): J45.909 - UNSPECIFIED ASTHMA, UNCOMPLICATED (3) Blood culture positive for Aziza species Code(s): B37.9 - CANDIDIASIS, UNSPECIFIED (4) COPD (chronic obstructive pulmonary disease) Code(s): J44.9 - CHRONIC OBSTRUCTIVE PULMONARY DISEASE, UNSPECIFIED (5) Hip pain Code(s): M25.559 - PAIN IN UNSPECIFIED HIP Qualifiers: Laterality: right Qualified Code(s): M25.551 - Pain in right hip
[2019-09-26] MEDS: HEPARIN NA (PORCINE) 5,000 UNITS/ML 1ML VIAL SQ SCH ×2 (09:25→21:29)
[2019-09-26] MEDS: PANTOPRAZOLE 40 MG TABLET (FP) PO SCH (09:25)
[2019-09-26] MEDS: NICOTINE 7 MG/24 HOURS TOPICAL PATCH TD SCH (09:26)
--- NOTE | 2019-09-26 10:19 | PN ---
Progress Note, Physician Chief Complaint: fungemia, hip pain History of Present Illness: hip pain persists no sob, orthopnea/PND no cp no palp, leg swelling - Current Medication List Current Medications: Active Medications Acetaminophen (Tylenol -) 650 mg PO Q6H PRN PRN Reason: PAIN LEVEL 1-5 Last Admin: 09/25/19 22:25 Dose: 650 mg Clonidine (Catapres -) 0.1 mg PO Q4H PRN PRN Reason: HYPERTENSION Last Admin: 09/26/19 09:25 Dose: 0.1 mg Heparin Sodium (Porcine) (Heparin -) 5,000 unit SQ BID [facility] Last Admin: 09/26/19 09:25 Dose: 5,000 unit Caspofungin 50 mg/ Sodium (Chloride) 250 mls @ 250 mls/hr IVPB Q24H [facility] Last Admin: 09/25/19 16:55 Dose: 250 mls/hr Ibuprofen (Motrin -) 600 mg PO Q6H PRN PRN Reason: FEVER Last Admin: 09/25/19 16:59 Dose: 600 mg Melatonin (Melatonin) 5 mg PO HS PRN PRN Reason: INSOMNIA Last Admin: 09/25/19 22:26 Dose: 5 mg Nicotine (Nicoderm Patch -) 7 mg TD DAILY [facility] Last Admin: 09/26/19 09:26 Dose: 7 mg Pantoprazole Sodium (Protonix -) 40 mg PO DAILY [facility] Last Admin: 09/26/19 09:25 Dose: 40 mg - Objective Vital Signs: Vital Signs Temperature 97.9 F 09/26/19 05:26 Pulse Rate 49 L 09/26/19 05:26 Respiratory Rate 20 09/26/19 05:26 Blood Pressure 125/58 L 09/26/19 05:26 O2 Sat by Pulse Oximetry (%) 100 09/25/19 20:55 Constitutional: Yes: Well Nourished, No Distress, Calm Cardiovascular: Yes: Regular Rate and Rhythm, S1, S2. No: Gallop, Murmur Respiratory: Yes: Regular, CTA Bilaterally. No: Accessory Muscle Use, Rales, Wheezes Extremities: No: Cold Edema: No Neurological: Yes: Alert. No: Seizure Psychiatric: No: Agitated Labs: CBC, BMP 09/26/19 05:20 09/26/19 05:20 Assessment/Plan Echo 09/14: nl LV/RV. normal valve morphology and function, no vegetation IMP: Active IVDA (heroin) Fungemia (on outpatient blood cultures) Right hip pain, severe R > L AVN on MRI without signs of osteomyelitis REC: 1. surveillance cultures remain NGTD 2. Echo - no vegetations, normal valvular function: endocarditis appears clinically unlikely 3. plan per ID 4. off tele 5. treatment for opiate withdrawal as per PMD (on Methadone) 6. hemodynamically stable, normal temp curve
[2019-09-26] MEDS ORDERED: FLU VACCINE QUAD 60 MCG/0.5 ML (MDV 19-20) IM ONE (16:08)
[2019-09-26] MEDS ORDERED: PNEUMOC 13-VAL CONJ-DIP CRM/PF 0.5 ML DISP.SYRIN IM ONE (16:08)
[2019-09-26] MEDS ORDERED: PNEUMOCOCCAL 23 VACCINE 0.5 ML VIAL IM ONE (16:15)
[2019-09-26] MEDS ORDERED: PT OWN MED DRAWER 7, Y5N ONE (16:26)
[2019-09-26] MEDS: CASPOFUNGIN ACETATE 50 MG in SODIUM CHLORIDE 250 ML IVPB SCH (19:05)
[2019-09-26] MEDS: IBUPROFEN 600 MG TABLET (FP) PO PRN (19:56)
[2019-09-26] MEDS: MELATONIN 5 MG TABLETS PO PRN (20:02)
[2019-09-27] MEDS ORDERED: METHADONE HCL 5 MG TABLET PO ONE (06:26)
[2019-09-27] MEDS: HEPARIN NA (PORCINE) 5,000 UNITS/ML 1ML VIAL SQ SCH ×2 (10:28→21:51)
[2019-09-27] MEDS: NICOTINE 7 MG/24 HOURS TOPICAL PATCH TD SCH (10:28)
[2019-09-27] MEDS: IBUPROFEN 600 MG TABLET (FP) PO PRN ×2 (10:28→17:56)
[2019-09-27] MEDS: PANTOPRAZOLE 40 MG TABLET (FP) PO SCH (10:29)
--- NOTE | 2019-09-27 10:39 | PN ---
Progress Note, Physician Chief Complaint: hip pain History of Present Illness: pain persists no sob, orthopnea, pnd no cp, palpit - Current Medication List Current Medications: Active Medications Acetaminophen (Tylenol -) 650 mg PO Q6H PRN PRN Reason: PAIN LEVEL 1-5 Last Admin: 09/25/19 22:25 Dose: 650 mg Clonidine (Catapres -) 0.1 mg PO Q4H PRN PRN Reason: HYPERTENSION Last Admin: 09/26/19 09:25 Dose: 0.1 mg Heparin Sodium (Porcine) (Heparin -) 5,000 unit SQ BID [facility] Last Admin: 09/27/19 10:28 Dose: 5,000 unit Caspofungin 50 mg/ Sodium (Chloride) 250 mls @ 250 mls/hr IVPB Q24H [facility] Last Admin: 09/26/19 19:05 Dose: 250 mls/hr Ibuprofen (Motrin -) 600 mg PO Q6H PRN PRN Reason: FEVER Last Admin: 09/27/19 10:28 Dose: 600 mg Melatonin (Melatonin) 5 mg PO HS PRN PRN Reason: INSOMNIA Last Admin: 09/26/19 20:02 Dose: 5 mg Nicotine (Nicoderm Patch -) 7 mg TD DAILY [facility] Last Admin: 09/27/19 10:28 Dose: 7 mg Pantoprazole Sodium (Protonix -) 40 mg PO DAILY [facility] Last Admin: 09/27/19 10:29 Dose: 40 mg - Objective Vital Signs: Vital Signs Temperature 98.6 F 09/27/19 06:24 Pulse Rate 44 L 09/27/19 06:24 Respiratory Rate 20 09/27/19 06:24 Blood Pressure 112/43 L 09/27/19 06:24 O2 Sat by Pulse Oximetry (%) 97 09/26/19 21:00 Constitutional: Yes: Well Nourished, No Distress, Calm Cardiovascular: Yes: Regular Rate and Rhythm, S1, S2. No: Gallop, Murmur Respiratory: Yes: Regular, CTA Bilaterally. No: Accessory Muscle Use, Rales, Wheezes Extremities: No: Cold Edema: No Neurological: Yes: Alert, Oriented Psychiatric: No: Agitated Labs: CBC, BMP 09/26/19 05:20 09/26/19 05:20 Assessment/Plan Echo 09/14: nl LV/RV. normal valve morphology and function, no vegetation IMP: Active IVDA (heroin) Fungemia (on outpatient blood cultures) Right hip pain, severe R > L AVN on MRI without signs of osteomyelitis REC: 1. surveillance cultures remain NGTD 2. Echo - no vegetations, normal valvular function: endocarditis appears clinically unlikely 3. plan per ID 4. off tele 5. treatment for opiate withdrawal as per PMD (on Methadone) 6. hemodynamically stable, normal temp curve
--- NOTE | 2019-09-27 12:55 | PN ---
Progress Note (short form) - Note Progress Note: pt seen/ examined chart is reviewed reports having withdrawl symptoms Methadone 5 m===says did not help at all Vital Signs Temp 98.6 F 09/27/19 06:24 Pulse 44 L 09/27/19 06:24 Resp 20 09/27/19 06:24 BP 112/43 L 09/27/19 06:24 Pulse Ox 97 09/26/19 21:00 Intake & Output 09/26/19 09/27/19 09/27/19 23:59 11:59 23:59 Intake Total 840 Balance 840 Intake: Oral 840 Other: Voiding Method Toilet # Unmeasured Voids Void 2 Bowel Movement No Active Medications Acetaminophen (Tylenol -) 650 mg PO Q6H PRN PRN Reason: PAIN LEVEL 1-5 Last Admin: 09/25/19 22:25 Dose: 650 mg Clonidine (Catapres -) 0.1 mg PO Q4H PRN PRN Reason: HYPERTENSION Last Admin: 09/26/19 09:25 Dose: 0.1 mg Heparin Sodium (Porcine) (Heparin -) 5,000 unit SQ BID [facility] Last Admin: 09/27/19 10:28 Dose: 5,000 unit Caspofungin 50 mg/ Sodium (Chloride) 250 mls @ 250 mls/hr IVPB Q24H [facility] Last Admin: 09/26/19 19:05 Dose: 250 mls/hr Ibuprofen (Motrin -) 600 mg PO Q6H PRN PRN Reason: FEVER Last Admin: 09/27/19 10:28 Dose: 600 mg Melatonin (Melatonin) 5 mg PO HS PRN PRN Reason: INSOMNIA Last Admin: 09/26/19 20:02 Dose: 5 mg Nicotine (Nicoderm Patch -) 7 mg TD DAILY [facility] Last Admin: 09/27/19 10:28 Dose: 7 mg Pantoprazole Sodium (Protonix -) 40 mg PO DAILY [facility] Last Admin: 09/27/19 10:29 Dose: 40 mg CBC, BMP 09/26/19 05:20 09/26/19 05:20 Microbiology 09/21/19 14:35 Blood Culture - Final Blood - Peripheral Venous NO GROWTH AFTER 5 DAYS INCUBATION 09/21/19 14:35 Blood Culture - Final Blood - Peripheral Venous NO GROWTH AFTER 5 DAYS INCUBATION Physical Awake/Anxious S1 S2 RRR Lung decreased Abd- soft, NT, BS+ edema++ PLAN detox eval pending IV caspofungin echo-- no vegetations Sono legs-- no DVT iv fluids dc Ortho eval noted pt wants to do surgery elsewhere -->prefers [facility] DVT prophylaxis MRI done-- report noted-- avascular necrosis Discussed with RN/ Will be calling again for Detox consult Will given Methadone 10 mg x 1 dose now f/u cultures/ from his pmd Hep C +ve will follow Problem List - Problems (1) IVDU (intravenous drug user) Code(s): F19.90 - OTHER PSYCHOACTIVE SUBSTANCE USE, UNSPECIFIED, UNCOMPLICATED (2) Asthma Code(s): J45.909 - UNSPECIFIED ASTHMA, UNCOMPLICATED (3) Blood culture positive for Aziza species Code(s): B37.9 - CANDIDIASIS, UNSPECIFIED (4) COPD (chronic obstructive pulmonary disease) Code(s): J44.9 - CHRONIC OBSTRUCTIVE PULMONARY DISEASE, UNSPECIFIED (5) Hip pain Code(s): M25.559 - PAIN IN UNSPECIFIED HIP Qualifiers: Laterality: right Qualified Code(s): M25.551 - Pain in right hip
[2019-09-27] MEDS ORDERED: PT OWN MED DRAWER 7, Y5N ONE (16:59)
[2019-09-27] MEDS: CASPOFUNGIN ACETATE 50 MG in SODIUM CHLORIDE 250 ML IVPB SCH (18:01)
[2019-09-27] MEDS ORDERED: METHADONE HCL 10 MG TABLET PO ONE (18:55)
[2019-09-27] MEDS: MELATONIN 5 MG TABLETS PO PRN (21:51)
[2019-09-28 02:08] LABS: FIBROSIS SCORE. 0.07 (0.00-0.21); HCV ALPHA 2 MACRO CHART 91 mg/dL (110-276); NECRO.INFLAM ACT.SCORE 0.39 (0.00-0.17); NECROINFLAM. ACTIVITY GRADE A1-A2 (.)
[2019-09-28 05:14] VITALS: PULSE 54
[2019-09-28] MEDS ORDERED: METHADONE HCL 5 MG TABLET PO ONE (06:26)
[2019-09-28] MEDS: PANTOPRAZOLE 40 MG TABLET (FP) PO SCH (09:03)
[2019-09-28] MEDS: HEPARIN NA (PORCINE) 5,000 UNITS/ML 1ML VIAL SQ SCH (09:03)
[2019-09-28] MEDS: NICOTINE 7 MG/24 HOURS TOPICAL PATCH TD SCH (09:03)
[2019-09-28] MEDS: IBUPROFEN 600 MG TABLET (FP) PO PRN (09:10)
[2019-09-28 09:23] VITALS: BP 121/58; TEMP 98
--- NOTE | 2019-09-28 10:57 | PN ---
Progress Note (short form) - Note Progress Note: s: no chest pain, palps dizziness, dyspnea. Current Medications Acetaminophen (Tylenol -) 650 mg PO Q6H PRN PRN Reason: PAIN LEVEL 1-5 Last Admin: 09/25/19 22:25 Dose: 650 mg Clonidine (Catapres -) 0.1 mg PO Q4H PRN PRN Reason: HYPERTENSION Last Admin: 09/26/19 09:25 Dose: 0.1 mg Heparin Sodium (Porcine) (Heparin -) 5,000 unit SQ BID [facility] Last Admin: 09/28/19 09:03 Dose: 5,000 unit Caspofungin 50 mg/ Sodium (Chloride) 250 mls @ 250 mls/hr IVPB Q24H [facility] Last Admin: 09/27/19 18:01 Dose: 250 mls/hr Ibuprofen (Motrin -) 600 mg PO Q6H PRN PRN Reason: FEVER Last Admin: 09/28/19 09:10 Dose: 600 mg Melatonin (Melatonin) 5 mg PO HS PRN PRN Reason: INSOMNIA Last Admin: 09/27/19 21:51 Dose: 5 mg Nicotine (Nicoderm Patch -) 7 mg TD DAILY [facility] Last Admin: 09/28/19 09:03 Dose: 7 mg Pantoprazole Sodium (Protonix -) 40 mg PO DAILY [facility] Last Admin: 09/28/19 09:03 Dose: 40 mg Vital Signs Period Temp Pulse Resp BP Sys/Palacios Pulse Ox Last 24 Hr 98.0 F-98.7 F 54-64 15-20 102-121/50-70 96-97 Constitutional: Yes: Well Nourished, No Distress, Calm Cardiovascular: Yes: Regular Rate and Rhythm, S1, S2. No: Gallop, Murmur Respiratory: Yes: Regular, CTA Bilaterally. No: Accessory Muscle Use, Rales, Wheezes Extremities: No: Cold Edema: No Neurological: Yes: Alert, Oriented Psychiatric: No: Agitated Assessment/Plan Echo 09/14: nl LV/RV. normal valve morphology and function, no vegetation IMP: Active IVDA (heroin) Fungemia (on outpatient blood cultures) Right hip pain, severe R > L AVN on MRI without signs of osteomyelitis REC: - surveillance cultures NGTD - Echo - no vegetations, normal valvular function: endocarditis appears clinically unlikely - plan per ID - treatment for opiate withdrawal as per PMD (on Methadone)
--- NOTE | 2019-09-28 13:18 | DS ---
Physical Examination Vital Signs: Vital Signs Temperature 98.0 F 09/28/19 09:22 Pulse Rate 54 L 09/28/19 05:00 Respiratory Rate 15 09/28/19 09:23 Blood Pressure 121/58 L 09/28/19 09:22 O2 Sat by Pulse Oximetry (%) 96 09/28/19 09:23 Constitutional: Yes: No Distress Cardiovascular: Yes: Regular Rate and Rhythm Respiratory: Yes: Diminished Gastrointestinal: Yes: Normal Bowel Sounds, Soft. No: Tenderness Edema: No Labs: CBC, BMP 09/26/19 05:20 09/26/19 05:20 Discharge Summary Problems reviewed: Yes Reason For Visit: ARTHRALGIA OF HIP,BLOOD CULTURE POSITIVE FOR Health Concerns: admitted for positive yeast in blood cultures done at PMD office Pt is active IV drug user-- heroin He was given Methadone protocol for detox from Heroin C/ o 3 yrs h/o right hip pain MRI right hip-- avascular necrosis Evaluated by ID started on IV Vanco and IV cancidas on admission blood cultures here were negative -- so vanco dc -- kept Cancidas Evaluated by cardiology to r/o endocarditis-- Echo negative for vegetations LFT elevated chronic sono abd-- >mild hepatosplenomegaly and fatty liver sono leg-- no DVT he was seen by Ortho here-- recommend surgery fpr the right hip Spoke with Dr Pichardo today-- final identification is pending--- he called the lab and they said that they sent the sample to the [facility] Pt advised to get CT abd/pelvis with contrast to look for abscess-- focus of fungal infection -- pt refusing Recommend ophthalmology eval for endophthalmitis-->pt refusing He understands risks of refusing treatment -- he signed out AMA today Condition: Fair - Instructions Referrals: Jem Pichardo MD [Primary Care Provider] - Disposition: AGAINST MEDICAL ADVICE - Home Medications Comprehensive Discharge Medication List: Ambulatory Orders Albuterol Sulfate Inhaler - [Ventolin HFA Inhaler -] 2 inh IH Q6H #1 inh Buprenorphine HCl/Naloxone HCl [Buprenor-Nalox 12-3 mg Sl Film] 1 each SL DAILY 09/22/19 Gabapentin 1 cap PO TID 09/22/19
== END 2019-09-28 12:46 | disposition left against medical advice (07) | DRG 724 ==
LOC: JER 12:46 → JERBED 13:38 → J4W 09-22 17:44
PROVIDERS: ADMIT Internal Medicine; ATTEND Internal Medicine
DX: B49 Unspecified mycosis (principal); J44.9 Chronic obstructive pulmonary disease, unspecified; J45.909 Unspecified asthma, uncomplicated; F11.23 Opioid dependence with withdrawal; B19.20 Unspecified viral hepatitis C without hepatic coma; M25.551 Pain in right hip; M87.059 Idiopathic aseptic necrosis of unspecified femur; R16.1 Splenomegaly, not elsewhere classified; K76.0 Fatty (change of) liver, not elsewhere classified; L03.115 Cellulitis of right lower limb
CPT/HCPCS: 36415; 71045-TC-FY; 73523-TC-FY; 73720-TC; 76700-TC; 80053; 81003; 82172; 82977; 83010; 83605; 83883; 84460; 85025; 85027; 85651; 86140; 86704; 86705; 86706; 86707; 86708; 86709; 87040; 87340; 87522; 90732; 93005; 93010; 93306-TC; 93971-TC; 99284-25; A9579; G0009; J0131; J0637; J0735; J1644; J7030